=== PATIENT | female | born 1955 | race Caucasian/White ===

== ENCOUNTER 2017-01-12 10:06 | Day surgery (SDC) | payer MEDICARE, OTHER ==
--- NOTE | ~2017-01-12 | EGD ---
EGD REPORT [facility] [address] [address] NAME: CHANCE DELEON : [birth year] STATUS : REG [facility]#: [id number] AGE: 61 ADM/REG DATE : 01/12/17 MR#: [id number] REPORT SERV DATE: 01/12/17 DICTATED BY: DATE: REPORT STATUS : Draft TRANSCRIBED BY: [employer] DATE: 01/12/17 [facility] Patient Name: Chance Deleon Date of : 1955 Attending MD: MADDY TEJADA MD Procedure Date No Time: 01/12/2017 Procedure: Colonoscopy Indications: Heme positive stool, Iron deficiency anemia secondary to chronic blood loss, history adenomatous polyps Referring MD: LEON HIGH Medicines: Monitored Anesthesia Care Complications: No immediate complications. Procedure: Pre-Anesthesia Assessment: - ASA Grade Assessment: III - A patient with severe systemic disease. After I obtained informed consent, the scope was passed under direct vision. Throughout the procedure, the patient's blood pressure, pulse, and oxygen saturations were monitored continuously. The PCF H190L [id number] was introduced through the anus and advanced to the cecum, identified by appendiceal orifice and ileocecal valve. The colonoscopy was performed without difficulty. The patient tolerated the procedure well. The quality of the bowel preparation was good. Findings: The perianal and digital rectal examinations were normal. The colon (entire examined portion) appeared normal. There is no endoscopic evidence of diverticula, erythema, inflammation, mass, polyps, ulcerations or angioectasia in the entire colon. No additional abnormalities were found on retroflexion. Impression: - The entire examined colon is normal. Recommendation: - Patient has a contact number available for emergencies. The signs and symptoms of potential delayed complications were discussed with the patient. Return to normal activities tomorrow. Written discharge instructions were provided to the patient. - Return to previous diet. - Discharge patient to home. - Continue present medications. - Repeat colonoscopy in 5 years for surveillance. Procedure Code(s): --- Professional --- EGD REPORT [facility] [address] [place] [address] [place]. [address] NAME: CHANCE DELEON : [birth year] STATUS : REG [facility]#: [id number] AGE: 61 ADM/REG DATE : 01/12/17 MR#: [id number] REPORT SERV DATE: 01/12/17 DICTATED BY: DATE: REPORT STATUS : Draft TRANSCRIBED BY: [email or web address] DATE: 01/12/17 70440, Colonoscopy, flexible, proximal to splenic flexure; diagnostic, with or without collection of specimen(s) by brushing or washing, with or without colon decompression (separate procedure) Diagnosis Code(s): --- Professional --- R19.5, Other fecal abnormalities D50.0, Iron deficiency anemia secondary to blood loss (chronic) CPT copyright 2013 [employer]. All rights reserved. The codes documented in this report are preliminary and upon seed specialist review may be revised to meet current compliance requirements. MADDY TEJADA MD 01/12/2017 1:03 PM This report has been signed electronically. Number of Addenda: 0 Note Initiated On: 01/12/2017 11:45 AM Scope Withdrawal Time 0 hours 13 minutes 0 seconds [id number] [address] [place] [id number]
--- NOTE | ~2017-01-12 | EGD ---
EGD REPORT [facility] [address] [place] [address] NAME: CHANCE DELEON : 51 STATUS : REG [facility]#: [id number] AGE: 61 ADM/REG DATE : 01/12/17 MR#: [id number] REPORT SERV DATE: 01/12/17 DICTATED BY: DATE: REPORT STATUS : Draft TRANSCRIBED BY: [employer] DATE: 01/12/17 [facility] Patient Name: Chance Deleon Date of : 1955 Attending MD: MADDY TEJADA MD Procedure Date No Time: 01/12/2017 Procedure: Upper GI endoscopy Indications: Iron deficiency anemia secondary to chronic blood loss, Iron deficiency anemia, Heme positive stool, Weight loss Referring MD: LEON HIGH Medicines: Monitored Anesthesia Care Complications: No immediate complications. Procedure: Pre-Anesthesia Assessment: - ASA Grade Assessment: III - A patient with severe systemic disease. After obtaining informed consent, the endoscope was passed under direct vision. Throughout the procedure, the patient's blood pressure, pulse, and oxygen saturations were monitored continuously. The GIF H190 [id number] was introduced through the mouth, and advanced to the jejunum. The upper GI endoscopy was accomplished without difficulty. The patient tolerated the procedure well. Findings: The Z-line was irregular and was found 41 cm from the incisors. Biopsies were taken with a cold forceps for histology. No other significant abnormalities were identified in a careful examination of the esophagus. There is no endoscopic evidence of hiatus hernia, ulcerations or varices in the entire esophagus. One non-bleeding cratered gastric ulcer was found at the gastric aspect of the anastomosis for a Bilroth I. The lesion was >20 mm in largest dimension. Biopsies were taken with a cold forceps for histology. Diffuse moderate inflammation characterized by erosions was found in the gastric antrum. Biopsies were taken with a cold forceps for histology. The examined jejunum was normal. There is no endoscopic evidence of ulceration or angioectasia in the jejunum. The cardia and gastric fundus were normal on retroflexion. Impression: - Z-line irregular, 41 cm from the incisors. Biopsied. - Gastric ulcer with clean base. Biopsied. - Acute gastritis. Biopsied. - Normal examined jejunum. EGD REPORT [address] [address] NAME: CHANCE DELEON : [birth year] STATUS : REG [facility] PAT#: [id number] AGE: 61 ADM/REG DATE : 01/12/17 MR#: [id number] REPORT SERV DATE: 01/12/17 DICTATED BY: DATE: REPORT STATUS : Draft TRANSCRIBED BY: [employer] DATE: 01/12/17 Recommendation: - Patient has a contact number available for emergencies. The signs and symptoms of potential delayed complications were discussed with the patient. Return to normal activities tomorrow. Written discharge instructions were provided to the patient. - Regular diet. - Use Protonix (pantoprazole) 40 mg PO BID. - Await pathology results. - Continue present medications. - Repeat the upper endoscopy in 3 months for surveillance. Procedure Code(s): --- Professional --- 05012, Esophagogastroduodenoscopy, flexible, transoral; with biopsy, single or multiple Diagnosis Code(s): --- Professional --- K22.8, Other specified diseases of esophagus K25.9, Gastric ulcer, unspecified as acute or chronic, without hemorrhage or perforation K29.00, Acute gastritis without bleeding D50.0, Iron deficiency anemia secondary to blood loss (chronic) D50.9, Iron deficiency anemia, unspecified R19.5, Other fecal abnormalities R63.4, Abnormal weight loss CPT copyright 2013 [employer]. All rights reserved. The codes documented in this report are preliminary and upon personal lines underwriter review may be revised to meet current compliance requirements. MADDY TEJADA MD 01/12/2017 1:01 PM This report has been signed electronically. Number of Addenda: 0 Note Initiated On: 01/12/2017 11:46 AM Scope Withdrawal Time 0 hours 0 minutes 0 seconds
[~2017-01-12 10:06] MED LIST: AMB10 PO; ASAB PO; B121000P IM; CAP50 PO; CAPOTEN100 MG PO; CAT1 PO; CYMBALTA60 PO; DEMA20 PO; HALF81 PO; I10 PO; IBU800 PO; IODOSORB TOP; LANTUS SC; LEVOTHYROXIN137 MCG PO; LIPITOR10 PO; LORCET PO; NEUR300 PO; NEUR600 PO; NORV10 PO; NORV5 PO; OXYCONTIN15 MG PO; P5 PO; PLAVIX PO; PREDISONE PO/LIQ; REM15 PO; REQUIP1 PO; RESTASIS OP; ROXICODONE15 MG PO; SYN125 PO; SYNTHROID137 MCG PO; TRAMADOL HCL50 MG OR; ULTRAM50 PO; X5 PO; XIFAXAN550 MG PO; ZYVOXPO PO
[2017-04-08] MEDS ORDERED: ROXICODONE15 MG PO (21:01)
[2017-04-08] MEDS ORDERED: ASAB PO (21:02)
[2017-04-08] MEDS ORDERED: LIPITOR10 PO (21:02)
[2017-04-08] MEDS ORDERED: PR25 PO (21:02)
[2017-04-08] MEDS ORDERED: CO Q-10200 MG PO (21:03)
[2017-04-08] MEDS ORDERED: CAPOTEN100 MG PO (21:03)
[2017-04-08] MEDS ORDERED: CREON 24,000 UNIT PO (21:03)
[2017-04-08] MEDS ORDERED: REG PO (21:04)
[2017-04-08] MEDS ORDERED: LANTUSCART SC (21:04)
[2017-04-08] MEDS ORDERED: NEUR600 PO (21:04)
[2017-04-08] MEDS ORDERED: SYNTHROID137 MCG PO (21:04)
[2017-04-08] MEDS ORDERED: CYMBALTA60 PO (21:04)
[2017-04-08] MEDS ORDERED: NOVOLOG SC (21:05)
[2017-04-08] MEDS ORDERED: P5 PO (21:07)
[2017-04-08] MEDS ORDERED: VITE PO (21:07)
[2017-04-08] MEDS ORDERED: OXYCON20 PO (21:07)
[2017-04-08] MEDS ORDERED: PROTONIX PO (21:07)
[2017-04-08] MEDS ORDERED: BISR PR (21:08)
[2017-04-08] MEDS ORDERED: CREON 12000 UNIT PO (21:10)
[2017-04-08] MEDS ORDERED: FLEETS ENEMA PR (21:11)
[2017-04-08] MEDS ORDERED: MOMUD PEG (21:12)
[2017-04-08] MEDS ORDERED: ZOFRAN4 PO (21:12)
[2017-04-21] MEDS ORDERED: ASAB PO (19:23)
[2017-04-21] MEDS ORDERED: LIPITOR10 PO (19:24)
[2017-04-21] MEDS ORDERED: CO Q-10200 MG PO (19:24)
[2017-04-21] MEDS ORDERED: CAP50 PO (19:24)
[2017-04-21] MEDS ORDERED: CYMBALTA60 PO (19:25)
[2017-04-21] MEDS ORDERED: CREON 24000 UNIT PO (19:25)
[2017-04-21] MEDS ORDERED: NEUR600 PO (19:25)
[2017-04-21] MEDS ORDERED: SYNTHROID137 MCG PO (19:26)
[2017-04-21] MEDS ORDERED: LEVEMFLXPN SC (19:26)
[2017-04-21] MEDS ORDERED: LOP25 PO (19:27)
[2017-04-21] MEDS ORDERED: REG PO (19:27)
[2017-04-21] MEDS ORDERED: LIDODERM TOP (19:27)
[2017-04-21] MEDS ORDERED: FLAG500TAB PO (19:28)
[2017-04-21] MEDS ORDERED: NOVOPEN SC (19:29)
[2017-04-21] MEDS ORDERED: P5 PO (19:30)
[2017-04-21] MEDS ORDERED: VITE PO (19:30)
[2017-04-21] MEDS ORDERED: PRILOSEC40 MG PO (19:30)
[2017-04-21] MEDS ORDERED: OXYCON20 PO (19:30)
[2017-04-21] MEDS ORDERED: SPIRO25 PO (19:30)
[2017-04-21] MEDS ORDERED: BISR PR (19:31)
[2017-04-21] MEDS ORDERED: CREON 12000 UNIT PO (19:31)
[2017-04-21] MEDS ORDERED: NORCO1 TA2 PO (19:31)
[2017-04-21] MEDS ORDERED: ZOFRAN4 PO (19:32)
[2017-04-21] MEDS ORDERED: MOMUD PO (19:32)
[2017-04-21] MEDS ORDERED: PR12.5 PO (19:33)
[2017-05-17] MEDS ORDERED: CALTRA600D PO (19:21)
[2017-05-17] MEDS ORDERED: CAP50 PO (19:21)
[2017-05-17] MEDS ORDERED: LIPITOR10 PO (19:21)
[2017-05-17] MEDS ORDERED: CO Q-10200 MG PO (19:21)
[2017-05-17] MEDS ORDERED: ASAB PO (19:21)
[2017-05-17] MEDS ORDERED: CREON DR 3,0001 EACH PO ×2 (19:22→19:26)
[2017-05-17] MEDS ORDERED: CYMBALTA60 PO (19:22)
[2017-05-17] MEDS ORDERED: NEUR600 PO (19:22)
[2017-05-17] MEDS ORDERED: LOP25 PO (19:23)
[2017-05-17] MEDS ORDERED: LEVOTHYROXIN137 MCG PO (19:23)
[2017-05-17] MEDS ORDERED: LIDODERM TOP (19:23)
[2017-05-17] MEDS ORDERED: LEVEMIR SC (19:23)
[2017-05-17] MEDS ORDERED: PRILOSEC40 MG PO (19:24)
[2017-05-17] MEDS ORDERED: MYCOSCROI TOP (19:24)
[2017-05-17] MEDS ORDERED: NOVOLOG SC (19:24)
[2017-05-17] MEDS ORDERED: REM15 PO (19:24)
[2017-05-17] MEDS ORDERED: P5 PO (19:25)
[2017-05-17] MEDS ORDERED: SPIRO25 PO (19:25)
[2017-05-17] MEDS ORDERED: OXYCON20 PO (19:25)
[2017-05-17] MEDS ORDERED: NORCO1 TA2 PO (19:26)
[2017-05-17] MEDS ORDERED: VITE PO (19:26)
[2017-05-17] MEDS ORDERED: REG PO (19:26)
[2017-05-17] MEDS ORDERED: ZOFRAN4 PO (19:27)
[2017-05-17] MEDS ORDERED: PR12.5 PO (19:27)
[2017-05-17] MEDS ORDERED: TRAZ50 PO (19:27)
[2017-05-26] MEDS ORDERED: REM15 PO (16:35)
[2017-05-26] MEDS ORDERED: LEVOTHYROXIN137 MCG PO (16:35)
[2017-05-26] MEDS ORDERED: P5 PO (16:36)
[2017-05-26] MEDS ORDERED: CAPOTEN100 MG PO (16:36)
[2017-05-26] MEDS ORDERED: LIPITOR10 PO (16:36)
[2017-05-26] MEDS ORDERED: CYMBALTA60 PO (16:36)
[2017-05-26] MEDS ORDERED: ROXICODONE15 MG PO (16:37)
[2017-05-26] MEDS ORDERED: VITE PO (16:37)
[2017-05-26] MEDS ORDERED: CO Q-10200 MG PO (16:37)
[2017-05-26] MEDS ORDERED: OXYCONTIN15 MG PO (16:38)
[2017-05-26] MEDS ORDERED: PROTONIX PO (16:39)
[2017-05-26] MEDS ORDERED: I10 PO (16:39)
[2017-05-26] MEDS ORDERED: NEUR300 PO (16:39)
[2017-05-26] MEDS ORDERED: CREON PO (16:40)
[2017-05-26] MEDS ORDERED: NORV5 PO (16:40)
[2017-05-26] MEDS ORDERED: LANTUS SC (16:41)
[2017-05-26] MEDS ORDERED: DEMA20 PO (16:42)
[2017-05-28] MEDS ORDERED: LIPITOR10 PO (19:23)
[2017-05-28] MEDS ORDERED: CAP25 PO (19:23)
[2017-05-28] MEDS ORDERED: CO Q-10200 MG PO (19:24)
[2017-05-28] MEDS ORDERED: CYMBALTA60 PO (19:24)
[2017-05-28] MEDS ORDERED: CREON DR 3,0001 EACH PO (19:24)
[2017-05-28] MEDS ORDERED: LOP25 PO (19:25)
[2017-05-28] MEDS ORDERED: NEUR300 PO (19:25)
[2017-05-28] MEDS ORDERED: LANTUSCART SC (19:25)
[2017-05-28] MEDS ORDERED: SYNTHROID137 MCG PO (19:25)
[2017-05-28] MEDS ORDERED: NOVOLOG SC (19:26)
[2017-05-28] MEDS ORDERED: NORCO1 TA2 PO (19:26)
[2017-05-28] MEDS ORDERED: MYCOSCROI TOP (19:26)
[2017-05-28] MEDS ORDERED: PROTONIX PO (19:27)
[2017-05-28] MEDS ORDERED: P5 PO (19:27)
[2017-05-28] MEDS ORDERED: PR12.5 PO (19:27)
[2017-05-28] MEDS ORDERED: VITE PO (19:28)
[2017-05-28] MEDS ORDERED: REM15 PO (19:28)
[2017-05-28] MEDS ORDERED: TRAZ50 PO (19:28)
[2017-05-28] MEDS ORDERED: ZOFRAN4 PO (19:29)
[2017-05-28] MEDS ORDERED: [UNRECOGNIZED DRUG - CODE] PO (19:29)
[2017-05-28] MEDS ORDERED: OXYCON20 PO (20:00)
[2017-06-22] MEDS ORDERED: CREON PO (09:37)
[2017-06-22] MEDS ORDERED: OXYCODONE PO (09:41)
[2017-07-21] MEDS ORDERED: OXYCOD PO (09:54)
== END 2017-01-12 23:59 | disposition home or self-care (01) ==
LOC: DMU 10:06
PROVIDERS: Internal Medicine Gastroenterology
PROC: 0DJD8ZZ Inspection of Lower Intestinal Tract, Via Natural or Artificial Opening Endoscopic (ICD-10-PCS; 2017-01-12)
PROC: 0DB68ZX Excision of Stomach, Via Natural or Artificial Opening Endoscopic, Diagnostic (ICD-10-PCS; principal; 2017-01-12 13:00)
PROC: 0DB58ZX Excision of Esophagus, Via Natural or Artificial Opening Endoscopic, Diagnostic (ICD-10-PCS; 2017-01-12 13:00)
DX: D50.0 Iron deficiency anemia secondary to blood loss (chronic) (principal); K29.50 Unspecified chronic gastritis without bleeding; K25.9 Gastric ulcer, unspecified as acute or chronic, without hemorrhage or perforation; K20.9 Esophagitis, unspecified; I10 Essential (primary) hypertension; I25.10 Atherosclerotic heart disease of native coronary artery without angina pectoris; E11.40 Type 2 diabetes mellitus with diabetic neuropathy, unspecified; E78.00 Pure hypercholesterolemia, unspecified; M79.7 Fibromyalgia; E03.9 Hypothyroidism, unspecified; F32.9 Major depressive disorder, single episode, unspecified; Z88.8 Allergy status to other drugs, medicaments and biological substances; Z79.82 Long term (current) use of aspirin; Z79.891 Long term (current) use of opiate analgesic; Z79.4 Long term (current) use of insulin; Z79.899 Other long term (current) drug therapy; Z98.51 Tubal ligation status; Z96.642 Presence of left artificial hip joint; Z98.890 Other specified postprocedural states; Z98.41 Cataract extraction status, right eye; Z98.42 Cataract extraction status, left eye
CPT/HCPCS: 82962; 88305; 88342

== ENCOUNTER 2017-03-18 08:35 | Day surgery (SDC) | payer MEDICARE, OTHER ==
--- NOTE | ~2017-03-18 | OP ---
Record Of Operation [facility] [address] [place]. 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 PROCEDURE: Right infraclavicular SMART Port Port-A-Cath placed with C-arm guidance and confirmation. ANESTHESIA: 0.5% Marcaine with epinephrine 20 mL locally infiltrated supplemented by monitored analgesia control per the anesthesia group CONTRACT ADMINISTRATION SPECIALIST. CREW LEADER/CONTROL ROOM OPERATOR: Ray Molina RN SKILLED LABORER SPECIMENS: There were no specimens removed. ESTIMATED BLOOD LOSS: 5 mL. COMPLICATIONS: No complications. POSTOPERATIVE FINDINGS: The Port-A-Cath was in good position and no obvious pneumothorax. Good flow, irrigation, and aspiration were obtained. PERTINENT PREOPERATIVE INFORMATION: The patient is status post diagnosis of scleroderma as well as status post a Whipple done at [facility] in 1997 for chronic pancreatitis. The patient has continued to lose weight and developed multiple wounds in lower extremities. Her pre-albumin was quite low and her level was measured at 7.8, which is in the severe malnourished category. The patient's SMART Port is catalog number [id number], lot #[id number], label pin #[id number], revision A. DESCRIPTION OF PROCEDURE: The patient was brought to the operating room. Time-out called and full agreement with personnel about the procedure, allergies, and antibiotics. The patient was prepped and draped in the operative field. Prepping out the upper chest and neck. Marking pen was used to delineate a marking position at the level of the internal and jugular vein as well as the infraclavicular and subclavian vein sites. The patient was placed in Trendelenburg position and 18-gauge needle used to approach the subclavian vein infraclavicularly. The guidewire was then placed after good flow, irrigation, and aspiration had been achieved. The guidewire was advanced and C-arm confirmation of location was achieved. After this was done, a dilator with a strip away sheath was introduced over the guidewire and the Port-A-Cath tubing was placed in through the strip away sheath and positioned with C-arm guidance. Good position in the superior vena cava was achieved and Record Of Operation [facility] [address] [place]. [address] NAME: CHANCE FIELDS : 51 STATUS : REG [facility] PAT#: [id number] AGE: 61 ADM/REG DATE : 03/18/17 MR#: [id number] REPORT SERV DATE: 03/18/17 DICTATED BY: NILDA MOLINA III DATE: 03/18/17 REPORT STATUS : Draft TRANSCRIBED BY: [employer] DATE: 03/18/17 the port catheter used to aspirate and irrigate with good flow and irrigation noted. A tunneling device was then used to tunnel between the small infraclavicular incision, which was about 3-4 mm and a pocket that was created about 6 cm inferior on the right side. The pocket was developed and the tunneling device used to pull the catheter between the two incisions. The Port-A-Cath itself was then secured to the chest wall fascia with two sutures of 2-0 silk and the catheter secured to the Port-A-Cath with the provided securing device and 2-0 silk placed around the hub to further secure it. The port was then irrigated and aspirated with good flow and irrigation and the port itself was then irrigated with 4 mL of 10/999 strength straight heparin. After this was done, the port was secured to the underlying fascia with the two silk sutures and the subcutaneous tissue closed over the port with interrupted 3-0 Vicryl sutures. The skin was then closed with Dermabond. The small infraclavicular incision at the entry site was closed with two layers of 4-0 Vicryl and Dermabond to the skin. Wound was then dressed with Telfa and Tegaderm and the procedure concluded with C-arm confirmation of the location. A portable chest x-ray, upright position has been ordered to rule out a pneumothorax. The patient tolerated the procedure well with good control of her discomfort during the operation with a steady vital signs. RB/MODL Nilda Molina III, M.D. / [id number] CC: Davonte Katz III, LISA [facility] Nichol Roberts M.D.
[2017-03-18 09:50] LABS: INTERNATIONAL NORMAL RATI 1.3 UNITS (-); PROTIME (NOT ORD) 15.9 SEC (12.0-14.5)
[2017-04-08] MEDS ORDERED: ROXICODONE15 MG PO (21:01)
[2017-04-08] MEDS ORDERED: ASAB PO (21:02)
[2017-04-08] MEDS ORDERED: PR25 PO (21:02)
[2017-04-08] MEDS ORDERED: LIPITOR10 PO (21:02)
[2017-04-08] MEDS ORDERED: CREON 24,000 UNIT PO (21:03)
[2017-04-08] MEDS ORDERED: CAPOTEN100 MG PO (21:03)
[2017-04-08] MEDS ORDERED: CO Q-10200 MG PO (21:03)
[2017-04-08] MEDS ORDERED: NEUR600 PO (21:04)
[2017-04-08] MEDS ORDERED: REG PO (21:04)
[2017-04-08] MEDS ORDERED: SYNTHROID137 MCG PO (21:04)
[2017-04-08] MEDS ORDERED: LANTUSCART SC (21:04)
[2017-04-08] MEDS ORDERED: CYMBALTA60 PO (21:04)
[2017-04-08] MEDS ORDERED: NOVOLOG SC (21:05)
[2017-04-08] MEDS ORDERED: P5 PO (21:07)
[2017-04-08] MEDS ORDERED: OXYCON20 PO (21:07)
[2017-04-08] MEDS ORDERED: VITE PO (21:07)
[2017-04-08] MEDS ORDERED: PROTONIX PO (21:07)
[2017-04-08] MEDS ORDERED: BISR PR (21:08)
[2017-04-08] MEDS ORDERED: CREON 12000 UNIT PO (21:10)
[2017-04-08] MEDS ORDERED: FLEETS ENEMA PR (21:11)
[2017-04-08] MEDS ORDERED: MOMUD PEG (21:12)
[2017-04-08] MEDS ORDERED: ZOFRAN4 PO (21:12)
[2017-04-21] MEDS ORDERED: ASAB PO (19:23)
[2017-04-21] MEDS ORDERED: CO Q-10200 MG PO (19:24)
[2017-04-21] MEDS ORDERED: CAP50 PO (19:24)
[2017-04-21] MEDS ORDERED: LIPITOR10 PO (19:24)
[2017-04-21] MEDS ORDERED: NEUR600 PO (19:25)
[2017-04-21] MEDS ORDERED: CREON 24000 UNIT PO (19:25)
[2017-04-21] MEDS ORDERED: CYMBALTA60 PO (19:25)
[2017-04-21] MEDS ORDERED: LEVEMFLXPN SC (19:26)
[2017-04-21] MEDS ORDERED: SYNTHROID137 MCG PO (19:26)
[2017-04-21] MEDS ORDERED: REG PO (19:27)
[2017-04-21] MEDS ORDERED: LOP25 PO (19:27)
[2017-04-21] MEDS ORDERED: LIDODERM TOP (19:27)
[2017-04-21] MEDS ORDERED: FLAG500TAB PO (19:28)
[2017-04-21] MEDS ORDERED: NOVOPEN SC (19:29)
[2017-04-21] MEDS ORDERED: OXYCON20 PO (19:30)
[2017-04-21] MEDS ORDERED: PRILOSEC40 MG PO (19:30)
[2017-04-21] MEDS ORDERED: SPIRO25 PO (19:30)
[2017-04-21] MEDS ORDERED: VITE PO (19:30)
[2017-04-21] MEDS ORDERED: P5 PO (19:30)
[2017-04-21] MEDS ORDERED: CREON 12000 UNIT PO (19:31)
[2017-04-21] MEDS ORDERED: BISR PR (19:31)
[2017-04-21] MEDS ORDERED: NORCO1 TA2 PO (19:31)
[2017-04-21] MEDS ORDERED: ZOFRAN4 PO (19:32)
[2017-04-21] MEDS ORDERED: MOMUD PO (19:32)
[2017-04-21] MEDS ORDERED: PR12.5 PO (19:33)
[2017-05-17] MEDS ORDERED: CALTRA600D PO (19:21)
[2017-05-17] MEDS ORDERED: CAP50 PO (19:21)
[2017-05-17] MEDS ORDERED: ASAB PO (19:21)
[2017-05-17] MEDS ORDERED: LIPITOR10 PO (19:21)
[2017-05-17] MEDS ORDERED: CO Q-10200 MG PO (19:21)
[2017-05-17] MEDS ORDERED: CREON DR 3,0001 EACH PO ×2 (19:22→19:26)
[2017-05-17] MEDS ORDERED: CYMBALTA60 PO (19:22)
[2017-05-17] MEDS ORDERED: NEUR600 PO (19:22)
[2017-05-17] MEDS ORDERED: LEVEMIR SC (19:23)
[2017-05-17] MEDS ORDERED: LIDODERM TOP (19:23)
[2017-05-17] MEDS ORDERED: LEVOTHYROXIN137 MCG PO (19:23)
[2017-05-17] MEDS ORDERED: LOP25 PO (19:23)
[2017-05-17] MEDS ORDERED: MYCOSCROI TOP (19:24)
[2017-05-17] MEDS ORDERED: PRILOSEC40 MG PO (19:24)
[2017-05-17] MEDS ORDERED: REM15 PO (19:24)
[2017-05-17] MEDS ORDERED: NOVOLOG SC (19:24)
[2017-05-17] MEDS ORDERED: OXYCON20 PO (19:25)
[2017-05-17] MEDS ORDERED: P5 PO (19:25)
[2017-05-17] MEDS ORDERED: SPIRO25 PO (19:25)
[2017-05-17] MEDS ORDERED: VITE PO (19:26)
[2017-05-17] MEDS ORDERED: REG PO (19:26)
[2017-05-17] MEDS ORDERED: NORCO1 TA2 PO (19:26)
[2017-05-17] MEDS ORDERED: PR12.5 PO (19:27)
[2017-05-17] MEDS ORDERED: ZOFRAN4 PO (19:27)
[2017-05-17] MEDS ORDERED: TRAZ50 PO (19:27)
[2017-05-26] MEDS ORDERED: REM15 PO (16:35)
[2017-05-26] MEDS ORDERED: LEVOTHYROXIN137 MCG PO (16:35)
[2017-05-26] MEDS ORDERED: CYMBALTA60 PO (16:36)
[2017-05-26] MEDS ORDERED: CAPOTEN100 MG PO (16:36)
[2017-05-26] MEDS ORDERED: LIPITOR10 PO (16:36)
[2017-05-26] MEDS ORDERED: P5 PO (16:36)
[2017-05-26] MEDS ORDERED: CO Q-10200 MG PO (16:37)
[2017-05-26] MEDS ORDERED: VITE PO (16:37)
[2017-05-26] MEDS ORDERED: ROXICODONE15 MG PO (16:37)
[2017-05-26] MEDS ORDERED: OXYCONTIN15 MG PO (16:38)
[2017-05-26] MEDS ORDERED: PROTONIX PO (16:39)
[2017-05-26] MEDS ORDERED: NEUR300 PO (16:39)
[2017-05-26] MEDS ORDERED: I10 PO (16:39)
[2017-05-26] MEDS ORDERED: CREON PO (16:40)
[2017-05-26] MEDS ORDERED: NORV5 PO (16:40)
[2017-05-26] MEDS ORDERED: LANTUS SC (16:41)
[2017-05-26] MEDS ORDERED: DEMA20 PO (16:42)
[2017-05-28] MEDS ORDERED: CAP25 PO (19:23)
[2017-05-28] MEDS ORDERED: LIPITOR10 PO (19:23)
[2017-05-28] MEDS ORDERED: CREON DR 3,0001 EACH PO (19:24)
[2017-05-28] MEDS ORDERED: CO Q-10200 MG PO (19:24)
[2017-05-28] MEDS ORDERED: CYMBALTA60 PO (19:24)
[2017-05-28] MEDS ORDERED: LANTUSCART SC (19:25)
[2017-05-28] MEDS ORDERED: LOP25 PO (19:25)
[2017-05-28] MEDS ORDERED: NEUR300 PO (19:25)
[2017-05-28] MEDS ORDERED: SYNTHROID137 MCG PO (19:25)
[2017-05-28] MEDS ORDERED: MYCOSCROI TOP (19:26)
[2017-05-28] MEDS ORDERED: NOVOLOG SC (19:26)
[2017-05-28] MEDS ORDERED: NORCO1 TA2 PO (19:26)
[2017-05-28] MEDS ORDERED: PR12.5 PO (19:27)
[2017-05-28] MEDS ORDERED: P5 PO (19:27)
[2017-05-28] MEDS ORDERED: PROTONIX PO (19:27)
[2017-05-28] MEDS ORDERED: VITE PO (19:28)
[2017-05-28] MEDS ORDERED: REM15 PO (19:28)
[2017-05-28] MEDS ORDERED: TRAZ50 PO (19:28)
[2017-05-28] MEDS ORDERED: ZOFRAN4 PO (19:29)
[2017-05-28] MEDS ORDERED: [UNRECOGNIZED DRUG - CODE] PO (19:29)
[2017-05-28] MEDS ORDERED: OXYCON20 PO (20:00)
[2017-06-22] MEDS ORDERED: CREON PO (09:37)
[2017-06-22] MEDS ORDERED: OXYCODONE PO (09:41)
[2017-07-21] MEDS ORDERED: OXYCOD PO (09:54)
== END 2017-03-18 15:21 | disposition home or self-care (01) ==
LOC: SDC 08:35
PROVIDERS: Surgery
PROC: 05HM33Z Insertion of Infusion Device into Right Internal Jugular Vein, Percutaneous Approach (ICD-10-PCS; 2017-03-18)
PROC: B513ZZA Fluoroscopy of Right Jugular Veins, Guidance (ICD-10-PCS; 2017-03-18)
PROC: 0JH60XZ Insertion of Tunneled Vascular Access Device into Chest Subcutaneous Tissue and Fascia, Open Approach (ICD-10-PCS; principal; 2017-03-18 09:45)
DX: M34.9 Systemic sclerosis, unspecified (principal); E43 Unspecified severe protein-calorie malnutrition; E78.5 Hyperlipidemia, unspecified; E11.51 Type 2 diabetes mellitus with diabetic peripheral angiopathy without gangrene; I10 Essential (primary) hypertension; I25.2 Old myocardial infarction; F32.9 Major depressive disorder, single episode, unspecified; Z90.49 Acquired absence of other specified parts of digestive tract; Z90.411 Acquired partial absence of pancreas; Z87.891 Personal history of nicotine dependence; Z88.5 Allergy status to narcotic agent; Z79.82 Long term (current) use of aspirin; Z79.4 Long term (current) use of insulin; Z79.891 Long term (current) use of opiate analgesic; Z79.52 Long term (current) use of systemic steroids; Z79.899 Other long term (current) drug therapy
CPT/HCPCS: 71010; 76000; 77001; 82962; 85610; 85730; 93005; C1788; J0690; J2250; J2370; J2405; J3010

== ENCOUNTER 2017-03-25 12:52 | Inpatient (IN) | payer MEDICARE, OTHER ==
--- NOTE | ~2017-03-25 | HP ---
History And Physical [place] [address] [facility] [place]. [address] NAME: CHANCE FIELDS : [birth year] STATUS : ADM IN [facility]#: [id number] AGE: 61 ADM/REG DATE : 03/25/17 MR#: [id number] REPORT SERV DATE: 03/25/17 DICTATED BY: SLOAN BURNETT DATE: 03/25/17 REPORT STATUS : Draft TRANSCRIBED BY: [employer] DATE: 03/25/17 DATE OF ADMISSION: 03/25/2017 CHIEF COMPLAINT: Increased shortness of breath and lethargy. 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 Came in because she had become more and more lethargic. She had become more and more shortness of breath. She says both her arms were weeping, and they did put a tourniquet on her left arm for checking her blood pressure that made her left arm swell even worse. She has a chest pain that she says felt somewhat heavier and tighter than usual. She denies any nausea, vomiting, diaphoresis. She has not had any fever or chills. She denies any cough. She says her appetite has been poor, but because she was not able to move she activated EMS and was brought to the hospital. In the emergency room, she was noted to have anasarca including some swelling in her abdomen as well as both upper extremities. She was also noted to be very weak and fatigue, so she had been referred to the Hospitalist Service for further treatment and evaluation. HOME MEDICATIONS: Aspirin 81 mg once daily; Lipitor 10 mg once at bedtime; captopril 10 mg twice daily; coenzyme Q10 200 mg once at bedtime; doxycycline 100 mg every 12 hours for seven days, therapy has been completed; Cymbalta 60 mg once daily; gabapentin 600 mg three times daily; insulin Lantus 8 units subcu at bedtime; levothyroxine 137 mcg once daily; Creon 24,000 units with meals and 12,000 units with snacks; Roxicodone 15 mg three times daily p.r.n.; OxyContin 15 mg every 12 hours; Protonix 40 mg p.o. twice daily; prednisone 5 mg once daily; vitamin E 400 mg once daily. REVIEW OF SYSTEMS: Rest of the 12-point review of systems were negative except she did mention a very low-grade fever. PAST MEDICAL HISTORY: Scleroderma, gastroesophageal reflux, hypertension, she has heart disease, CREST syndrome, chronic steroid use, chronic pancreatitis, chronic kidney disease followed by Dr. Cotto, and chronic bacterial overgrowth in the intestine followed by Dr. Nichol Roberts. PAST SURGICAL HISTORY: Significant for 2nd, 3rd, and 4th digits repaired by Dr. Wakefield and Whipple surgery. FAMILY HISTORY: Daughter noted to have Wang disease and grandmother with cancer. SOCIAL HISTORY: She has a history of smoking, quit about eight years ago, was smoking one pack per day for 15 years prior to that. No use of alcohol or illicit substances. Lives at home with the . Fully functional in all ADLs. PHYSICAL EXAMINATION: GENERAL: White female, lying on a gurney, appears to be chronically ill. History And Physical [address] [address] NAME: CHANCE FIELDS : [birth year] STATUS : ADM IN [facility]#: [id number] AGE: 61 ADM/REG DATE : 03/25/17 MR#: [id number] REPORT SERV DATE: 03/25/17 DICTATED BY: SLOAN BURNETT DATE: 03/25/17 REPORT STATUS : Draft TRANSCRIBED BY: CONCHITA DATE: 03/25/17 VITAL SIGNS: Blood pressure 148/85, pulse is 83, temp is 98.6, saturation of 93% on 2 L of nasal cannula. HEENT: Head is normocephalic and atraumatic. Pupils are equal, round, and reactive to light. Extraocular muscles are intact. Sclerae are anicteric. Conjunctivae are normal. Oropharynx without lesions. Multiple telangiectasias on the face. There is a bruise on the left amish area where she reported that she had fallen and she bruises easily. Her tongue protrusion is midline. Uvula is midline. NECK: Supple. There is no evidence of any jugular venous distention. No carotid bruits or thyromegaly is appreciated. Significant muscle wasting of the face both temples and of the neck area is also noted. HEART: Regular rate and rhythm. There is no murmurs, rubs, or gallops. PMI is nondisplaced. LUNGS: Dry. Velcro type rales are noted. There is no evidence of any focal consolidation. No rhonchi or wheezing is noted. ABDOMEN: Slightly obese, soft, nontender. Good bowel sounds. No rebound or guarding. No organomegaly. EXTREMITIES: Without cyanosis, clubbing. There is no evidence of edema in the lower extremities. There is 2+ pitting edema in bilateral upper extremities. Weeping left upper extremity is also noted. NEUROLOGICAL: Seems to be grossly intact. LABORATORY DATA: Sodium of 140, potassium of 4.4, chloride is 108, bicarb is 28, BUN is 25, creatinine is 0.64, glucose of 120. Calcium is 7.4, total protein is 4.8, albumin is 1.4. Total bilirubin is 0.9, alkaline phosphatase is 222, ALT is 25, AST is 63. Ammonia level is 12. BNP is 156. White count is 10.8, hemoglobin of 11.4, hematocrit of 33.7, platelet count is 233,000. No left shift. PT is 15, INR of 1.3, PTT is 34. An i-STAT ABG shows a pH of 7.4, pCO2 of 34, and a PO2 of less than 60, O2 saturation was 81%. Ionized calcium was 4.4. Lactate was 1.2. Glucose was 116. Blood cultures have been drawn and sent to the lab. Sputum culture has not been obtained yet. Chest x-ray portable, official radiology reading bilateral, asymmetric infiltrates are mildly worse compared to prior study of 03/18/2017. EKG sinus rhythm with occasional PACs, low voltage, but no acute ST-T wave changes. IMPRESSION: 1. Anasarca, most likely due to protein-calorie malnutrition and cirrhosis of the liver. 2. Cirrhosis of the liver. 3. Severe protein-calorie malnutrition with an albumin of 1.4. 4. Possibility of upper extremity deep venous thrombosis. 5. Scleroderma with CREST syndrome. 6. Hypertension. 7. Gastroesophageal reflux. PLAN: The patient will be admitted. IV albumin will be given. IV Bumex will be given. We will limit her salt intake. We will wean her O2, use of bronchodilator protocol. We will obtain a CT of the chest with contrast to further assess if there are any upper extremity vascular structures impingement. We will obtain bilateral upper extremity ultrasound to rule out DVT. We will check routine labs again in the morning. Check a pre-albumin. We History And Physical [address] [place]. [address] NAME: CHANCE FIELDS : 51 STATUS : ADM IN PAT#: [id number] AGE: 61 ADM/REG DATE : 03/25/17 MR#: [id number] REPORT SERV DATE: 03/25/17 DICTATED BY: SLOAN BURNETT DATE: 03/25/17 REPORT STATUS : Draft TRANSCRIBED BY: MODL DATE: 03/25/17 will ask physical therapy to evaluate and treat. The patient remains a full code. I have personally addressed her home medications as noted on her chart. ZULEYKA/CONCHITA Sloan Burnett M.D. / [id number] CC: Davonte Tolliver Lisa M
--- NOTE | ~2017-03-25 | CN ---
Consultation Report [facility] [address] [place]. [address] NAME: CHANCE DELEON : 51 STATUS : ADM IN [facility]#: [id number] AGE: 61 ADM/REG DATE : 03/25/17 MR#: [id number] REPORT SERV DATE: 03/29/17 DICTATED BY: DOMO OJEDA DATE: 03/29/17 REPORT STATUS : Draft TRANSCRIBED BY: MODL DATE: 03/29/17 INPATIENT CONSULTATION DATE OF CONSULTATION: 03/29/2017 REASON FOR CONSULTATION: Malnutrition and request for PEG tube placement. HISTORY OF PRESENT ILLNESS: Mrs. Deleon is a very pleasant 61-year-old female with past medical history most significant for systemic scleroderma with involvement of the liver with cirrhosis and lung disease, who presented to the emergency department due to increasing lethargy and shortness of breath. The patient has been having ongoing problems as well at home over the last several months with decreased nutrition, has been receiving TPN through a port. Plans have been made previously for consideration of possible PEG tube placement. The patient states that she has not been eating because she often gets full very quickly and will also have accompanying episodes of nauseousness. No vomiting on a regular basis. No change in her bowel habits. No abdominal pain. The patient denies any fevers or chills. Upon presentation, the patient was found to have signs of malnutrition with a low albumin of 1.4. Electrolytes were otherwise relatively unremarkable. BUN was 25, creatinine of 0.64, glucose of 120. LFTs were normal aside from an elevated alkaline phosphatase of 222. CBC was unremarkable. INR was 1.3. GI was consulted for consideration of PEG tube placement. REVIEW OF SYSTEMS: All systems reviewed and were negative aside from what was mentioned in history of present illness. PAST MEDICAL HISTORY: Includes, 1. Scleroderma. 2. GERD. 3. Hypertension. 4. Cirrhosis. 5. CREST syndrome. 6. Chronic pancreatitis, status post Whipple in 1997. 7. Chronic kidney disease. 8. Chronic bacterial overgrowth. FAMILY HISTORY: The patient has no family history of GI related malignancies that she is aware of. SOCIAL HISTORY: The patient denies alcohol, tobacco, and illicit substances. ALLERGIES: THIS PATIENT HAS ALLERGIES TO MEPERIDINE. OUTPATIENT MEDICATIONS: Include, 1. Coenzyme Q10. Consultation Report [place] [id number] [facility] [place]. [address] NAME: CHANCE DELEON : 51 STATUS : ADM IN PAT#: [id number] AGE: 61 ADM/REG DATE : 03/25/17 MR#: [id number] REPORT SERV DATE: 03/29/17 DICTATED BY: DOMO OJEDA DATE: 03/29/17 REPORT STATUS : Draft TRANSCRIBED BY: CONCHITA DATE: 03/29/17 2. Aspirin 81 mg p.o. daily. 3. Creon capsules. 4. Protonix 40 mg p.o. twice a day. 5. Lipitor. 6. Captopril. 7. Cymbalta. 8. Neurontin. 9. Levothyroxine. 10.Oxycodone. 11.Prednisone. 12.Vitamin E. 13.Lantus insulin. 14.Doxycycline. PHYSICAL EXAMINATION: VITAL SIGNS: Most recent vital signs include a temperature of 98.8, pulse of 80, blood pressure is 148/80, saturating 100% on 2 L nasal cannula oxygen. GENERAL: Inspection reveals an elderly female, lying in bed, in no apparent distress. HEENT: Head is normocephalic, atraumatic. Normal inspection of the oral mucosa, which is moist. Sclerae nonicteric. Pupils are equal and round. NECK: Supple without lymphadenopathy. HEART: Rate is regular with normal S1, S2. LUNGS: Lung sounds are clear to auscultation bilaterally. ABDOMEN: Soft, nontender, nondistended with normoactive bowel sounds. EXTREMITIES: The patient has no cyanosis, clubbing, or edema. SKIN: No jaundice or rash. NEURO: No gross motor deficits. She is alert and oriented. Mood and affect are appropriate. Judgment appears to be intact. LABORATORY DATA: Most recent laboratory results include CBC, it shows a white count of 5.6, hemoglobin of 8.5, and a platelet count of a 149,000. Renal function panel was entirely unremarkable aside from an albumin of 1.9. No pertinent imaging to review. ASSESSMENT AND PLAN: Mrs. Deleon is a pleasant 61-year-old female with past medical history most significant for scleroderma; gastroesophageal reflux disease; chronic pancreatitis, status post Whipple procedure in 1997; as well as chronic bacterial overgrowth, who presents with weakness and malnutrition. The patient has been receiving TPN per report. The patient's symptoms are primarily postprandial that have been preventing her from eating. Question if there is degree of gastroparesis underlying. We will send the patient for a gastric emptying study. If positive a trial of Reglan may be appropriate prior to proceeding with placement of a semi-permanent PEG tube/feeding tube. If no evidence of gastroparesis, would consider placement of a PEG, however, would have a low threshold for Consultation Report [place] [id number] [place]. [address] NAME: CHANCE DELEON : 51 STATUS : ADM IN [facility]#: [id number] AGE: 61 ADM/REG DATE : 03/25/17 MR#: [id number] REPORT SERV DATE: 03/29/17 DICTATED BY: DOMO OJEDA DATE: 03/29/17 REPORT STATUS : Draft TRANSCRIBED BY: CONCHITA DATE: 03/29/17 asking for Interventional Radiology assistance with placement given her altered anatomy and previous gastric surgery. Thank you very much for this interesting consult. Please call with any questions or concerns you may have. [facility]/CONCHITA Domo Ojeda MD / [id number] CC: MD LENNOX Cervantes II, LISA M *
--- NOTE | ~2017-03-25 | DS ---
Discharge Summary [facility] [address] [place]. [address] NAME: CHANCE FIELDS : 51 STATUS : DIS IN PAT#: [id number] AGE: 61 ADM/REG DATE : 03/25/17 MR#: [id number] REPORT SERV DATE: 06/28/17 DICTATED BY: SHIRLEY ESCALANTE II DATE: 06/27/17 REPORT STATUS : Draft TRANSCRIBED BY: MODL DATE: 06/27/17 ADMISSION DATE: 03/25/2017 DISCHARGE DATE: 04/01/2017 DISCHARGE DIAGNOSES: 1. Anasarca, resolved. 2. Severe protein-calorie malnutrition, status post PEG tube. 3. History of scleroderma and CREST. 4. Cirrhosis. 5. Gastroparesis. CONSULTS: Dr. Araujo with GI and Interventional Radiology. PROCEDURES: PEG tube placement by Dr. Delgado. BRIEF HISTORY OF PRESENT ILLNESS: The patient is a 61-year-old female with the above history, who presented to [facility] due to increasing shortness of breath and lethargy. For detailed history and physical examination, please see Dr. Burnett's note from 03/25/2017. HOSPITAL COURSE: On admission, the patient was found to be diffusely edematous with anasarca likely due to protein-calorie malnutrition, cirrhosis, hypoalbuminemia with an albumin of 1.4. She was given a brief course of IV Bumex with resolution of her edema. Dr. Araujo advised gastric emptying study, which showed a gastric EF of 12%. Dr. Delgado was subsequently consulted for placement of feeding tube with recommendation of Dr. Araujo. Dr. Delgado subsequently placed a PEG tube and the patient started on tube feedings and Reglan, which she seemed to tolerate with no residual. Otherwise, she was subsequently discharged in stable condition with tube feedings. DISCHARGE MEDICATIONS: 1. Aspirin 81 mg p.o. at bedtime. 2. Atorvastatin 10 mg p.o. at bedtime. 3. Captopril 100 mg p.o. b.i.d. 4. Coenzyme Q10 200 mg p.o. at bedtime. 5. Cymbalta 60 mg p.o. daily. 6. Neurontin 600 mg p.o. t.i.d. 7. Lantus 8 units subcu at bedtime. 8. Synthroid 137 mcg p.o. daily. 9. Creon 33709 units p.o. meals. 10.Creon 00652 units p.o. with snacks. 11.Protonix 40 mg p.o. b.i.d. 12.Vitamin E 400 units p.o. b.i.d. 13.Roxicodone 15 mg p.o. 3 times a day p.r.n. 14.Roxicodone 15 mg p.o. q.12 hours. 15.Prednisone 5 mg p.o. daily. 16.Reglan 10 mg p.o. a.c. and at bedtime. Discharge Summary [address] [address] NAME: CHANCE FIELDS : 51 STATUS : DIS IN PAT#: [id number] AGE: 61 ADM/REG DATE : 03/25/17 MR#: [id number] REPORT SERV DATE: 06/28/17 DICTATED BY: SHIRLEY ESCALANTE II DATE: 06/27/17 REPORT STATUS : Draft TRANSCRIBED BY: CONCHITA DATE: 06/27/17 DISCHARGE INSTRUCTIONS: The patient was discharged to assisted for further rehabilitation. [facility]/CONCHITA Shirley Escalante II, MD / [id number] CC: MD Abraham Cervantes II, Lisa M
[2017-03-25 13:55] LABS: BASOPHILS 0.1 %; BASOPHILS ABSOLUTE 0.01 10/3/uL (0.0-0.16); EOSINOPHILS 0.2 %; EOSINOPHILS ABSOLUTE 0.02 10/3/uL (0.0-0.53); HEMATOCRIT 33.7 % (36.0-48.0); HEMOGLOBIN 11.4 g/dL (12.0-16.0); IMMATURE GRANULOCYTES 0.5 %; IMMATURE GRANULOCYTES ABSOLUTE 0.05 10/3/uL (0.0-0.11); LYMPHOCYTES 6.5 %; MEAN CORPUS HGB CONC 33.8 g/dL (32.0-36.0); MEAN CORPUSCULAR HEMOGLOB 31.8 pg (26.0-34.0); MEAN CORPUSCULAR VOLUME 93.9 fL (80-100); MEAN PLATELET VOLUME 11.9 fL (9.2-13.0); MONOCYTES 2.6 %; MONOCYTES ABSOLUTE 0.28 10/3/uL (0.21-1.20); NEUTROPHILS 90.1 %; RBC DISTRIBUTION WIDTH 19.4 % (12.0-16.0); RED CELL COUNT 3.59 10/6/uL (4.0-5.6)
[2017-03-25 13:59] LABS: ER CBC TAT 0 Hrs 11 Mins; MANUAL DIFF NO %; PLATELET COUNT 233 10/3/uL (150-400); WHITE BLOOD CELLS 10.8 10/3/uL (4.5-10.5)
[2017-03-25 14:12] LABS: CALCIUM, SERUM 7.4 MG/DL (8.5-10.4); CHLORIDE, SERUM 108 MMOL/L (96-112); GLUCOSE, SERUM 120 MG/DL (60-99); POTASSIUM, SERUM 4.4 MMOL/L (3.5-5.3); SGOT(AST) 63 U/L (5-40); SGPT(ALT) 25 U/L (5-65); TOTAL BILIRUBIN 0.9 MG/DL (0-1.2); TOTAL PROTEIN 4.8 G/DL (6.0-8.5)
[2017-03-25 14:14] LABS: A/G RATIO 0.4 (0.7-1.9); ALBUMIN 1.4 G/DL (3.5-5.0); ALKALINE PHOSPHATASE 222 U/L (45-117); BUN (BLOOD UREA NITROGEN) 25 MG/DL (6-23); CO2 (CARBON DIOXIDE) 28 MMOL/L (24-34); CREATININE 0.64 MG/DL (0.55-1.02); GFR AFRICAN AMERICAN 110 ML/MIN (>=60); GFR NON AFRICAN AMERICAN 95 ML/MIN (>=60); GLOBULIN 3.4 G/DL (2.5-4.1); SODIUM, SERUM 140 MMOL/L (135-148)
[2017-03-25] MEDS ORDERED: COQ-10200 MG PO (14:59)
[2017-03-25] MEDS ORDERED: ASAB PO (15:00)
[2017-03-25] MEDS ORDERED: CREON DR 3,0001 EACH PO ×2 (15:02→15:03)
[2017-03-25] MEDS ORDERED: PROTONIX PO (15:04)
[2017-03-25] MEDS ORDERED: LIPITOR10 PO (15:05)
[2017-03-25] MEDS ORDERED: CAPOTEN100 MG PO (15:06)
[2017-03-25] MEDS ORDERED: CYMBALTA60 PO (15:07)
[2017-03-25] MEDS ORDERED: NEUR600 PO (15:09)
[2017-03-25] MEDS ORDERED: LEVOTHYROXIN137 MCG PO (15:10)
[2017-03-25] MEDS ORDERED: ROXICODONE15 MG PO (15:12)
[2017-03-25] MEDS ORDERED: OXYCONTIN15 MG PO (15:14)
[2017-03-25] MEDS ORDERED: P5 PO (15:17)
[2017-03-25] MEDS ORDERED: VITE PO (15:18)
[2017-03-25] MEDS ORDERED: LANTUS SC (15:20)
[2017-03-25] MEDS ORDERED: DORYX100 MG PO (15:27)
[2017-03-26 08:04] LABS: ALBUMIN 3.1 G/DL (3.5-5.0); BUN (BLOOD UREA NITROGEN) 21 MG/DL (6-23); CALCIUM, SERUM 7.8 MG/DL (8.5-10.4); CHLORIDE, SERUM 104 MMOL/L (96-112); CO2 (CARBON DIOXIDE) 29 MMOL/L (24-34); CREATININE 0.68 MG/DL (0.55-1.02); GFR AFRICAN AMERICAN 108 ML/MIN (>=60); GFR NON AFRICAN AMERICAN 93 ML/MIN (>=60); GLUCOSE, SERUM 97 MG/DL (60-99); PHOSPHORUS, SERUM 2.7 MG/DL (2.5-4.5); POTASSIUM, SERUM 3.9 MMOL/L (3.5-5.3); SODIUM, SERUM 138 MMOL/L (135-148)
[2017-03-26 08:57] LABS: BASOPHILS 0.1 %; BASOPHILS ABSOLUTE 0.01 10/3/uL (0.0-0.16); EOSINOPHILS 1.3 %; EOSINOPHILS ABSOLUTE 0.09 10/3/uL (0.0-0.53); HEMOGLOBIN 10.2 g/dL (12.0-16.0); IMMATURE GRANULOCYTES 0.4 %; IMMATURE GRANULOCYTES ABSOLUTE 0.03 10/3/uL (0.0-0.11); LYMPHOCYTES 14.5 %; LYMPHOCYTES ABSOLUTE 1.01 10/3/uL (0.67-4.30); MEAN CORPUS HGB CONC 33.7 g/dL (32.0-36.0); MEAN CORPUSCULAR HEMOGLOB 32.4 pg (26.0-34.0); MEAN CORPUSCULAR VOLUME 96.2 fL (80-100); MEAN PLATELET VOLUME 11.2 fL (9.2-13.0); MONOCYTES 3.4 %; MONOCYTES ABSOLUTE 0.24 10/3/uL (0.21-1.20); NEUTROPHILS 80.3 %; RBC DISTRIBUTION WIDTH 19.4 % (12.0-16.0); RED CELL COUNT 3.15 10/6/uL (4.0-5.6)
[2017-03-26 09:01] LABS: HEMATOCRIT 30.3 % (36.0-48.0)
[2017-03-26 09:02] LABS: MANUAL DIFF NO %; PLATELET COUNT 162 10/3/uL (150-400)
[2017-03-27 04:45] LABS: BASOPHILS 0.1 %; BASOPHILS ABSOLUTE 0.01 10/3/uL (0.0-0.16); EOSINOPHILS 0.7 %; EOSINOPHILS ABSOLUTE 0.08 10/3/uL (0.0-0.53); HEMATOCRIT 28.7 % (36.0-48.0); HEMOGLOBIN 9.7 g/dL (12.0-16.0); IMMATURE GRANULOCYTES 0.4 %; IMMATURE GRANULOCYTES ABSOLUTE 0.05 10/3/uL (0.0-0.11); LYMPHOCYTES ABSOLUTE 2.67 10/3/uL (0.67-4.30); MEAN CORPUS HGB CONC 33.8 g/dL (32.0-36.0); MEAN CORPUSCULAR HEMOGLOB 31.9 pg (26.0-34.0); MEAN CORPUSCULAR VOLUME 94.4 fL (80-100); MEAN PLATELET VOLUME 11.7 fL (9.2-13.0); MONOCYTES 3.5 %; MONOCYTES ABSOLUTE 0.41 10/3/uL (0.21-1.20); NEUTROPHILS 72.3 %; NEUTROPHILS ABSOLUTE 8.38 10/3/uL (2.02-8.40); PLATELET COUNT 204 10/3/uL (150-400); RBC DISTRIBUTION WIDTH 19.2 % (12.0-16.0); RED CELL COUNT 3.04 10/6/uL (4.0-5.6)
[2017-03-27 04:51] LABS: ALBUMIN 2.6 G/DL (3.5-5.0); BUN (BLOOD UREA NITROGEN) 16 MG/DL (6-23); CALCIUM, SERUM 7.7 MG/DL (8.5-10.4); CHLORIDE, SERUM 100 MMOL/L (96-112); CO2 (CARBON DIOXIDE) 38 MMOL/L (24-34); CREATININE 0.67 MG/DL (0.55-1.02); GFR AFRICAN AMERICAN 108 ML/MIN (>=60); GFR NON AFRICAN AMERICAN 94 ML/MIN (>=60); GLUCOSE, SERUM 42 MG/DL (60-99); MANUAL DIFF NO %; PHOSPHORUS, SERUM 2.1 MG/DL (2.5-4.5); POTASSIUM, SERUM 3.2 MMOL/L (3.5-5.3); SODIUM, SERUM 140 MMOL/L (135-148); WHITE BLOOD CELLS 11.6 10/3/uL (4.5-10.5)
[2017-03-28 04:06] LABS: ALBUMIN 2.1 G/DL (3.5-5.0); BUN (BLOOD UREA NITROGEN) 16 MG/DL (6-23); CALCIUM, SERUM 7.5 MG/DL (8.5-10.4); CHLORIDE, SERUM 101 MMOL/L (96-112); CO2 (CARBON DIOXIDE) 34 MMOL/L (24-34); CREATININE 0.57 MG/DL (0.55-1.02); GFR AFRICAN AMERICAN 114 ML/MIN (>=60); GFR NON AFRICAN AMERICAN 99 ML/MIN (>=60); PHOSPHORUS, SERUM 2.7 MG/DL (2.5-4.5); SODIUM, SERUM 142 MMOL/L (135-148)
[2017-03-28 04:07] LABS: GLUCOSE, SERUM 104 MG/DL (60-99)
[2017-03-29 05:39] LABS: BASOPHILS 0.2 %; BASOPHILS ABSOLUTE 0.01 10/3/uL (0.0-0.16); EOSINOPHILS 1.6 %; EOSINOPHILS ABSOLUTE 0.09 10/3/uL (0.0-0.53); HEMOGLOBIN 8.5 g/dL (12.0-16.0); IMMATURE GRANULOCYTES 0.2 %; IMMATURE GRANULOCYTES ABSOLUTE 0.01 10/3/uL (0.0-0.11); LYMPHOCYTES 18.3 %; LYMPHOCYTES ABSOLUTE 1.03 10/3/uL (0.67-4.30); MEAN CORPUS HGB CONC 32.7 g/dL (32.0-36.0); MEAN CORPUSCULAR HEMOGLOB 31.5 pg (26.0-34.0); MEAN CORPUSCULAR VOLUME 96.3 fL (80-100); MEAN PLATELET VOLUME 11.5 fL (9.2-13.0); MONOCYTES 3.9 %; MONOCYTES ABSOLUTE 0.22 10/3/uL (0.21-1.20); NEUTROPHILS 75.8 %; NEUTROPHILS ABSOLUTE 4.28 10/3/uL (2.02-8.40); PLATELET COUNT 149 10/3/uL (150-400); RBC DISTRIBUTION WIDTH 20.4 % (12.0-16.0)
[2017-03-29 05:40] LABS: MANUAL DIFF NO %; WHITE BLOOD CELLS 5.6 10/3/uL (4.5-10.5)
[2017-03-29 05:55] LABS: ALBUMIN 1.9 G/DL (3.5-5.0); CALCIUM, SERUM 7.8 MG/DL (8.5-10.4); CHLORIDE, SERUM 103 MMOL/L (96-112); CO2 (CARBON DIOXIDE) 33 MMOL/L (24-34); CREATININE 0.56 MG/DL (0.55-1.02); GFR AFRICAN AMERICAN 115 ML/MIN (>=60); GFR NON AFRICAN AMERICAN 99 ML/MIN (>=60); GLUCOSE, SERUM 104 MG/DL (60-99); PHOSPHORUS, SERUM 2.8 MG/DL (2.5-4.5); POTASSIUM, SERUM 3.8 MMOL/L (3.5-5.3); SODIUM, SERUM 141 MMOL/L (135-148)
[2017-03-29 05:56] LABS: BUN (BLOOD UREA NITROGEN) 12 MG/DL (6-23)
[2017-03-30 04:34] LABS: BASOPHILS 0.2 %; BASOPHILS ABSOLUTE 0.01 10/3/uL (0.0-0.16); EOSINOPHILS 1.8 %; HEMATOCRIT 25.4 % (36.0-48.0); HEMOGLOBIN 8.4 g/dL (12.0-16.0); IMMATURE GRANULOCYTES 0.4 %; IMMATURE GRANULOCYTES ABSOLUTE 0.02 10/3/uL (0.0-0.11); LYMPHOCYTES ABSOLUTE 1.13 10/3/uL (0.67-4.30); MEAN CORPUS HGB CONC 33.1 g/dL (32.0-36.0); MEAN CORPUSCULAR HEMOGLOB 32.3 pg (26.0-34.0); MEAN CORPUSCULAR VOLUME 97.7 fL (80-100); MEAN PLATELET VOLUME 11.7 fL (9.2-13.0); MONOCYTES 5.1 %; MONOCYTES ABSOLUTE 0.29 10/3/uL (0.21-1.20); NEUTROPHILS 72.5 %; NEUTROPHILS ABSOLUTE 4.09 10/3/uL (2.02-8.40); PLATELET COUNT 155 10/3/uL (150-400); RBC DISTRIBUTION WIDTH 20.3 % (12.0-16.0); WHITE BLOOD CELLS 5.6 10/3/uL (4.5-10.5)
[2017-03-30 04:35] LABS: MANUAL DIFF NO %
[2017-03-30 04:49] LABS: BUN (BLOOD UREA NITROGEN) 11 MG/DL (6-23); CHLORIDE, SERUM 106 MMOL/L (96-112); CO2 (CARBON DIOXIDE) 31 MMOL/L (24-34); CREATININE 0.56 MG/DL (0.55-1.02); GFR AFRICAN AMERICAN 115 ML/MIN (>=60); GFR NON AFRICAN AMERICAN 99 ML/MIN (>=60); GLUCOSE, SERUM 94 MG/DL (60-99); POTASSIUM, SERUM 4.3 MMOL/L (3.5-5.3); SODIUM, SERUM 142 MMOL/L (135-148)
[2017-03-30 06:05] LABS: INTERNATIONAL NORMAL RATI 1.1 UNITS (-); PARTIAL THROMBO TIME 38.2 SEC (22.5-37.2)
[2017-04-01 09:12] LABS: ALBUMIN 1.8 G/DL (3.5-5.0); BUN (BLOOD UREA NITROGEN) 13 MG/DL (6-23); CALCIUM, SERUM 7.6 MG/DL (8.5-10.4); CHLORIDE, SERUM 107 MMOL/L (96-112); CO2 (CARBON DIOXIDE) 30 MMOL/L (24-34); CREATININE 0.55 MG/DL (0.55-1.02); GFR AFRICAN AMERICAN 116 ML/MIN (>=60); GFR NON AFRICAN AMERICAN 100 ML/MIN (>=60); PHOSPHORUS, SERUM 2.5 MG/DL (2.5-4.5); POTASSIUM, SERUM 3.9 MMOL/L (3.5-5.3); PREALBUMIN 5.6 MG/DL (17.0-43.0); SGOT(AST) 29 U/L (5-40); SGPT(ALT) 19 U/L (5-65); SODIUM, SERUM 142 MMOL/L (135-148); TOTAL BILIRUBIN 0.5 MG/DL (0-1.2); TOTAL PROTEIN 4.5 G/DL (6.0-8.5)
[2017-04-01 09:13] LABS: A/G RATIO 0.7 (0.7-1.9); ALKALINE PHOSPHATASE 111 U/L (45-117); GLOBULIN 2.7 G/DL (2.5-4.1); GLUCOSE, SERUM 136 MG/DL (60-99)
[2017-04-08] MEDS ORDERED: ROXICODONE15 MG PO (21:01)
[2017-04-08] MEDS ORDERED: LIPITOR10 PO (21:02)
[2017-04-08] MEDS ORDERED: PR25 PO (21:02)
[2017-04-08] MEDS ORDERED: ASAB PO (21:02)
[2017-04-08] MEDS ORDERED: CAPOTEN100 MG PO (21:03)
[2017-04-08] MEDS ORDERED: CO Q-10200 MG PO (21:03)
[2017-04-08] MEDS ORDERED: CREON 24,000 UNIT PO (21:03)
[2017-04-08] MEDS ORDERED: LANTUSCART SC (21:04)
[2017-04-08] MEDS ORDERED: CYMBALTA60 PO (21:04)
[2017-04-08] MEDS ORDERED: REG PO (21:04)
[2017-04-08] MEDS ORDERED: NEUR600 PO (21:04)
[2017-04-08] MEDS ORDERED: SYNTHROID137 MCG PO (21:04)
[2017-04-08] MEDS ORDERED: NOVOLOG SC (21:05)
[2017-04-08] MEDS ORDERED: PROTONIX PO (21:07)
[2017-04-08] MEDS ORDERED: VITE PO (21:07)
[2017-04-08] MEDS ORDERED: OXYCON20 PO (21:07)
[2017-04-08] MEDS ORDERED: P5 PO (21:07)
[2017-04-08] MEDS ORDERED: BISR PR (21:08)
[2017-04-08] MEDS ORDERED: CREON 12000 UNIT PO (21:10)
[2017-04-08] MEDS ORDERED: FLEETS ENEMA PR (21:11)
[2017-04-08] MEDS ORDERED: ZOFRAN4 PO (21:12)
[2017-04-08] MEDS ORDERED: MOMUD PEG (21:12)
[2017-04-21] MEDS ORDERED: ASAB PO (19:23)
[2017-04-21] MEDS ORDERED: LIPITOR10 PO (19:24)
[2017-04-21] MEDS ORDERED: CAP50 PO (19:24)
[2017-04-21] MEDS ORDERED: CO Q-10200 MG PO (19:24)
[2017-04-21] MEDS ORDERED: NEUR600 PO (19:25)
[2017-04-21] MEDS ORDERED: CREON 24000 UNIT PO (19:25)
[2017-04-21] MEDS ORDERED: CYMBALTA60 PO (19:25)
[2017-04-21] MEDS ORDERED: LEVEMFLXPN SC (19:26)
[2017-04-21] MEDS ORDERED: SYNTHROID137 MCG PO (19:26)
[2017-04-21] MEDS ORDERED: REG PO (19:27)
[2017-04-21] MEDS ORDERED: LIDODERM TOP (19:27)
[2017-04-21] MEDS ORDERED: LOP25 PO (19:27)
[2017-04-21] MEDS ORDERED: FLAG500TAB PO (19:28)
[2017-04-21] MEDS ORDERED: NOVOPEN SC (19:29)
[2017-04-21] MEDS ORDERED: P5 PO (19:30)
[2017-04-21] MEDS ORDERED: VITE PO (19:30)
[2017-04-21] MEDS ORDERED: PRILOSEC40 MG PO (19:30)
[2017-04-21] MEDS ORDERED: SPIRO25 PO (19:30)
[2017-04-21] MEDS ORDERED: OXYCON20 PO (19:30)
[2017-04-21] MEDS ORDERED: CREON 12000 UNIT PO (19:31)
[2017-04-21] MEDS ORDERED: BISR PR (19:31)
[2017-04-21] MEDS ORDERED: NORCO1 TA2 PO (19:31)
[2017-04-21] MEDS ORDERED: MOMUD PO (19:32)
[2017-04-21] MEDS ORDERED: ZOFRAN4 PO (19:32)
[2017-04-21] MEDS ORDERED: PR12.5 PO (19:33)
[2017-05-17] MEDS ORDERED: CALTRA600D PO (19:21)
[2017-05-17] MEDS ORDERED: CAP50 PO (19:21)
[2017-05-17] MEDS ORDERED: CO Q-10200 MG PO (19:21)
[2017-05-17] MEDS ORDERED: ASAB PO (19:21)
[2017-05-17] MEDS ORDERED: LIPITOR10 PO (19:21)
[2017-05-17] MEDS ORDERED: CREON DR 3,0001 EACH PO ×2 (19:22→19:26)
[2017-05-17] MEDS ORDERED: NEUR600 PO (19:22)
[2017-05-17] MEDS ORDERED: CYMBALTA60 PO (19:22)
[2017-05-17] MEDS ORDERED: LEVEMIR SC (19:23)
[2017-05-17] MEDS ORDERED: LOP25 PO (19:23)
[2017-05-17] MEDS ORDERED: LIDODERM TOP (19:23)
[2017-05-17] MEDS ORDERED: LEVOTHYROXIN137 MCG PO (19:23)
[2017-05-17] MEDS ORDERED: NOVOLOG SC (19:24)
[2017-05-17] MEDS ORDERED: MYCOSCROI TOP (19:24)
[2017-05-17] MEDS ORDERED: PRILOSEC40 MG PO (19:24)
[2017-05-17] MEDS ORDERED: REM15 PO (19:24)
[2017-05-17] MEDS ORDERED: OXYCON20 PO (19:25)
[2017-05-17] MEDS ORDERED: P5 PO (19:25)
[2017-05-17] MEDS ORDERED: SPIRO25 PO (19:25)
[2017-05-17] MEDS ORDERED: NORCO1 TA2 PO (19:26)
[2017-05-17] MEDS ORDERED: REG PO (19:26)
[2017-05-17] MEDS ORDERED: VITE PO (19:26)
[2017-05-17] MEDS ORDERED: TRAZ50 PO (19:27)
[2017-05-17] MEDS ORDERED: ZOFRAN4 PO (19:27)
[2017-05-17] MEDS ORDERED: PR12.5 PO (19:27)
[2017-05-26] MEDS ORDERED: REM15 PO (16:35)
[2017-05-26] MEDS ORDERED: LEVOTHYROXIN137 MCG PO (16:35)
[2017-05-26] MEDS ORDERED: CAPOTEN100 MG PO (16:36)
[2017-05-26] MEDS ORDERED: CYMBALTA60 PO (16:36)
[2017-05-26] MEDS ORDERED: LIPITOR10 PO (16:36)
[2017-05-26] MEDS ORDERED: P5 PO (16:36)
[2017-05-26] MEDS ORDERED: ROXICODONE15 MG PO (16:37)
[2017-05-26] MEDS ORDERED: VITE PO (16:37)
[2017-05-26] MEDS ORDERED: CO Q-10200 MG PO (16:37)
[2017-05-26] MEDS ORDERED: OXYCONTIN15 MG PO (16:38)
[2017-05-26] MEDS ORDERED: NEUR300 PO (16:39)
[2017-05-26] MEDS ORDERED: I10 PO (16:39)
[2017-05-26] MEDS ORDERED: PROTONIX PO (16:39)
[2017-05-26] MEDS ORDERED: NORV5 PO (16:40)
[2017-05-26] MEDS ORDERED: CREON PO (16:40)
[2017-05-26] MEDS ORDERED: LANTUS SC (16:41)
[2017-05-26] MEDS ORDERED: DEMA20 PO (16:42)
[2017-05-28] MEDS ORDERED: LIPITOR10 PO (19:23)
[2017-05-28] MEDS ORDERED: CAP25 PO (19:23)
[2017-05-28] MEDS ORDERED: CREON DR 3,0001 EACH PO (19:24)
[2017-05-28] MEDS ORDERED: CYMBALTA60 PO (19:24)
[2017-05-28] MEDS ORDERED: CO Q-10200 MG PO (19:24)
[2017-05-28] MEDS ORDERED: LANTUSCART SC (19:25)
[2017-05-28] MEDS ORDERED: NEUR300 PO (19:25)
[2017-05-28] MEDS ORDERED: SYNTHROID137 MCG PO (19:25)
[2017-05-28] MEDS ORDERED: LOP25 PO (19:25)
[2017-05-28] MEDS ORDERED: MYCOSCROI TOP (19:26)
[2017-05-28] MEDS ORDERED: NOVOLOG SC (19:26)
[2017-05-28] MEDS ORDERED: NORCO1 TA2 PO (19:26)
[2017-05-28] MEDS ORDERED: PROTONIX PO (19:27)
[2017-05-28] MEDS ORDERED: P5 PO (19:27)
[2017-05-28] MEDS ORDERED: PR12.5 PO (19:27)
[2017-05-28] MEDS ORDERED: REM15 PO (19:28)
[2017-05-28] MEDS ORDERED: TRAZ50 PO (19:28)
[2017-05-28] MEDS ORDERED: VITE PO (19:28)
[2017-05-28] MEDS ORDERED: ZOFRAN4 PO (19:29)
[2017-05-28] MEDS ORDERED: [UNRECOGNIZED DRUG - CODE] PO (19:29)
[2017-05-28] MEDS ORDERED: OXYCON20 PO (20:00)
[2017-06-22] MEDS ORDERED: CREON PO (09:37)
[2017-06-22] MEDS ORDERED: OXYCODONE PO (09:41)
[2017-07-21] MEDS ORDERED: OXYCOD PO (09:54)
== END 2017-04-01 17:23 | DRG 391 ==
LOC: ER 12:52 → 4EA 15:22
PROVIDERS: Hospitalist; Internal Medicine; Nurse Practitioner Adult Health
PROC: 0DH63UZ Insertion of Feeding Device into Stomach, Percutaneous Approach (ICD-10-PCS; principal; 2017-03-30)
DX: K31.84 Gastroparesis (principal); E43 Unspecified severe protein-calorie malnutrition; K74.60 Unspecified cirrhosis of liver; Z68.1 Body mass index [BMI] 19.9 or less, adult; M34.1 CR(E)ST syndrome; I10 Essential (primary) hypertension; K21.9 Gastro-esophageal reflux disease without esophagitis; E11.9 Type 2 diabetes mellitus without complications; E03.9 Hypothyroidism, unspecified
CPT/HCPCS: 36600; 49440; 71010; 71020; 71275; 78264; 80048; 80053; 80069; 82140; 82330; 82803; 82947; 82962; 83605; 83735; 83880; 84100; 84132; 84134; 84295; 85014; 85025; 85379; 85610; 85730; 87040; 87070; 87205; 93005; 93306; 93970; 94640; 97110-GP; 97116-GP; 97161-GP; 97530-GP; 99285; A9270-GY; A9541; C1769; G8978-CK-GP; G8979-CJ-GP; J0330; J1170; J2250; J2270; J2405; J2765; J3010; P9047; Q9967

== ENCOUNTER 2017-04-08 23:37 | Inpatient (IN) | payer MEDICARE, OTHER ==
--- NOTE | ~2017-04-08 | HP ---
History And Physical [address] [address] NAME: CHANCE FIELDS : 51 STATUS : ADM Agnieszka PAT#: [id number] AGE: 61 ADM/REG DATE : 04/09/17 MR#: [id number] REPORT SERV DATE: 04/09/17 DICTATED BY: NEW BRANTLEY DATE: 04/09/17 REPORT STATUS : Draft TRANSCRIBED BY: MODL DATE: 04/09/17 DATE OF ADMISSION: 04/09/2017 CHIEF COMPLAINT: A 61-year-old female, presenting with intractable nausea and vomiting, unable to tolerate tube feedings and a PEG tube. HISTORY OF PRESENT ILLNESS: The patient's history was obtained through careful interview with the patient, coupled with review of [facility] and [facility] medical records. The patient has longstanding CREST syndrome and scleroderma because of chronic pancreatitis, had to have a Whipple in 1997. Recently, the patient has had debilitating vomiting related to gastroparesis and because of weight loss and debilitation and failure to thrive, was recommended to have a feeding tube placed. Within the last month, the patient had a PEG tube placed but unfortunately since being discharged at [facility] [place], tube feeds have been unsuccessful because the patient has significant post feeding residuals and the tube feeds are actually backing up considerably. For the last week, she has had nausea and vomiting that is uncontrolled. She describes epigastric abdominal discomfort, cramping quality, 5/10 severity that is constant. She has not had a significant bowel movement in some time. She has subjective fevers and chills, but no measured fevers. She describes urinary pressure, dysuria with a stinging sensation to her urine with urinary frequency. No shortness of breath. No chest pain. No cough. No lightheadedness. REVIEW OF SYSTEMS: Otherwise, a 14-point review of systems was obtained and was negative. PAST MEDICAL HISTORY: 1. CREST syndrome with scleroderma. 2. Diabetes. 3. Anemia. 4. GAR cirrhosis. 5. Pancreatitis chronic status post Whipple in 1997. 6. Chronic kidney disease. Followed previously by Dr. Cotto. 7. Coronary artery disease. 8. Peripheral vascular disease. 9. Hypertension. 10.Elevated cholesterol. History And Physical [address] [address] NAME: CHANCE FIELDS : 51 STATUS : ADM Agnieszka PAT#: [id number] AGE: 61 ADM/REG DATE : 04/09/17 MR#: [id number] REPORT SERV DATE: 04/09/17 DICTATED BY: NEW BRANTLEY DATE: 04/09/17 REPORT STATUS : Draft TRANSCRIBED BY: CONCHITA DATE: 04/09/17 11.Urethral stricture. Seen by Dr. Carreon. 12.Peptic ulcer disease. Seen by Dr. Nichol Roberts. 13.MRSA. 14.Nephrolithiasis. 15.Abdominal aortic aneurysm. 16.Gastroparesis. 17.Hypothyroidism. 18.Neuropathy. 19.Positive lupus anticoagulant. PAST SURGICAL HISTORY: 1. Whipple in 1997. 2. PEG tube placement. 3. Cholecystectomy. 4. Port-A-Cath placement. 5. Right foot osteomyelitis. 6. Hysterectomy. 7. Right hip surgery. 8. Incarcerated hernia repair. 9. Left wrist surgery. ALLERGIES: DEMEROL. SOCIAL HISTORY: Quit smoking about eight years ago. No alcohol abuse. She is . Lives in [place], [place], but has been rehabilitating at [facility]. She has two children. FAMILY HISTORY: Daughter with Wang's, and strong family history of cancer. CURRENT MEDICATIONS: Include aspirin 81 mg daily, Lipitor 10 mg daily, Dulcolax, captopril 100 mg p.o. b.i.d., coenzyme Q10, Cymbalta 60 mg p.o. daily, Neurontin 600 mg p.o. t.i.d., sliding scale insulin, Lantus 8 units subcutaneous at bedtime, Synthroid 137 mcg p.o. daily, Reglan 10 mg before meals and at bedtime, milk of magnesia, Zofran 4 mg p.o. q.6 hours, Roxicodone 15 mg p.o. t.i.d., OxyContin 20 mg p.o. b.i.d., Protonix 40 mg p.o. b.i.d., prednisone 5 mg p.o. daily, Phenergan p.r.n., vitamin E, Creon 99669 units with meals, Fleet Enema as needed. PHYSICAL EXAMINATION: VITAL SIGNS: Temperature 98.2, pulse 97, blood pressure 115/72, respiratory rate 20, O2 saturation 97% on room air. GENERAL: An ill-appearing female, in evidence of distress secondary to nausea and abdominal pain. HEENT: Pupils equal, round, and reactive to light. No conjunctival pallor. No scleral icterus. Nares are patent. Oropharynx is clear of obstruction. Moist mucous membranes. NECK: Trachea midline. No thyromegaly. LYMPH: No cervical lymphadenopathy. No supraclavicular lymphadenopathy. RESPIRATORY: Clear to auscultation at bases. No wheezes, rales, or rhonchi. Normal History And Physical [address] [place]. [address] NAME: CHANCE FIELDS : 51 STATUS : ADM Agnieszka PAT#: [id number] AGE: 61 ADM/REG DATE : 04/09/17 MR#: [id number] REPORT SERV DATE: 04/09/17 DICTATED BY: NEW BRANTLEY DATE: 04/09/17 REPORT STATUS : Draft TRANSCRIBED BY: CONCHITA DATE: 04/09/17 respiratory effort. CARDIOVASCULAR: Regular rate and rhythm. No murmurs, rubs, or gallops. No extremity edema is appreciated. ABDOMEN: Significant distention and tenderness over the epigastric area with diminished bowel tones. Guarding throughout. No rebound though. No hepatosplenomegaly. DERMATOLOGICAL: Warm and dry extremities. No pallor. No cyanosis. PSYCHIATRIC: Normal affect. Good mood. Alert and oriented x3. LABORATORY DATA: White blood count 6.2, hemoglobin 8.1, hematocrit 24.5 with an MCV of 101.5, platelets 282. Sodium 144, potassium 4.2, chloride 109, bicarb 30, BUN 19, creatinine 0.6, glucose 86. Urinalysis shows large leukocyte esterase with 20 white blood cells, albumin 2.2, lactic acid 0.5. INR 1.1. STUDIES: CT scan of the abdomen and pelvis shows no acute intraabdominal process. ASSESSMENT AND PLAN: 1. Gastroparesis exacerbation. Place on IV Reglan. 2. PEG tube, but the patient needs to have this changed to jejunal feeding tube, as the patient has failed tube feedings over the last week with the PEG tube, likely secondary to gastric distention and gastroparesis. We will consult Interventional Radiology. 3. Scleroderma with CREST. 4. Urinary tract infection. Check urine culture. Place on IV antibiotics. 5. Nonalcoholic steatohepatitis cirrhosis. 6. Macrocytic anemia, symptomatic. Transfuse blood. [facility]/MODL New Brantley M.D. / [id number] CC: MD Abraham Leiva Lisa M Colleen Schmitt, M.D.
--- NOTE | ~2017-04-08 | DS ---
Discharge Summary [facility] [address] [place]. [address] NAME: CHANCE FIELDS : 51 STATUS : ADM IN [facility]#: [id number] AGE: 61 ADM/REG DATE : 04/09/17 MR#: [id number] REPORT SERV DATE: 04/16/17 DICTATED BY: AURELIA ESPINOSA DATE: 04/15/17 REPORT STATUS : Draft TRANSCRIBED BY: MODL DATE: 04/15/17 ADMISSION DATE: 04/09/2017 DISCHARGE DATE: 04/15/2017 HOSPITAL COURSE: This is a pleasant 61-year-old female with known history of unfortunate scleroderma, long-standing crest syndrome, prior history of chronic pancreatitis on , even had a Whipple in 1997, the patient has known history of diabetes, anemia, GAR, cirrhosis appears well-compensated though, CKD sees Dr. Cotto, CAD, PAD, hypertension, hyperlipidemia, peptic ulcer disease, AAA, gastroparesis, decreased peristalsis due to scleroderma, narcotics, and diabetes likely, history osteomyelitis, MRSA. The patient came in with intractable nausea and vomiting, unable to tolerate tube feeds with the PEG tube. The patient recently had a debilitating episode of gastroparesis resulting in failure to thrive, debility, and weight loss. At that time recommended to have a feeding tube. The patient as a result, had a PEG tube, but the patient states would like to have had a GJ tube instead. The patient was discharged at that time to [facility]. Her tube feeds were unsuccessful there given significant post feeding residuals. The patient came in, placed on IV Reglan, and have pyuria likely UTI to treat with Ancef. As a result of improvement the patient finally got her J tube on the 04/12/2017, it was successful as a followup CT which then showed need for the PEG tube, balloon to be insufflated. The patient claimed to me that had since small bowel overgrowth in the past, as a result of being on her Ancef she was added with IV Flagyl and has improved amenable for discharge now that she has no abdominal pain, no nausea, no vomiting despite her goal tube feed of 55 mL an hour of Osmolite 1.5 via J tube. The patient should have continuous tube feeds, not just at night given the risk of increased rate resulting in worsening gastroparesis if her residuals were to ever increase she should stop her tube feeds rate until the residuals clear. Follow up GI in 4 to 6 weeks. Follow up with PCP in 2 weeks. Same tube feed rate, and H2O flushes at facility as here. Please do not exceed 55 mL an hour. Follow up Rheumatology in 4 to 6 weeks. The patient has been euglycemic regarding her contribution from diabetes for her gastroparesis. The patient also should reduce her narcotics given known reduction peristalsis result. DISCHARGE MEDICATIONS: 1. Aspirin 81 mg p.o. daily. 2. Lipitor 10 mg p.o. q.h.s. 3. Captopril 100 mg p.o. b.i.d. 4. Coenzyme Q10 200 mg p.o. q.h.s. 5. Cymbalta 60 mg p.o. daily. 6. Gabapentin 600 mg p.o. t.i.d. 7. NovoLog level 2 sliding scale. 8. Synthroid 137 mcg p.o. daily. 9. Lidoderm patch as nonnarcotic approach for pain. 10.Creon 24,000 units with meals, we should try t.i.d. then. 11.Reglan 10 mg p.o. before meals and at bedtime where she will have p.o. pleasure feeding only so as not to overload the gut with too much tube feed with oral intake. 12.Protonix 40 mg p.o. b.i.d., as her home dose of PPI could consider reducing as an outpatient. Discharge Summary [address] [address] NAME: CHANCE FIELDS : 51 STATUS : ADM IN [facility]#: [id number] AGE: 61 ADM/REG DATE : 04/09/17 MR#: [id number] REPORT SERV DATE: 04/16/17 DICTATED BY: AURELIA ESPINOSA DATE: 04/15/17 REPORT STATUS : Draft TRANSCRIBED BY: MODEverette DATE: 04/15/17 13.Aldactone 25 mg p.o. daily, cirrhosis. 14.Tocopherol 400 units p.o. b.i.d. 15.Oxycodone Sustained Release 20 mg p.o. b.i.d. home dose. 16.We would suppliant her Roxicodone 15 mg t.i.d. p.r.n. home dose with Lortab 7.5 mg. 17.The patient is beginning Dilaudid here. 18.Flagyl 500 mg p.o. t.i.d. for 4 more days. 19.Lantus or Levemir 8 units subcu q.h.s. 20.Phenergan p.r.n. 21.Dulcolax p.r.n. with Fleet enema p.r.n. CONSULTS: None. DISCHARGE DIAGNOSES: Recent history of small bowel overgrowth, urinary tract infection, anemia, non-alcoholic steatohepatitis, cirrhosis, gastroparesis as a result of scleroderma, diabetes, and heavy use of narcotics, malnutrition requiring tube feeds. All questions were answered. It took well over 30 minutes to do. DICTATED BY: Aurelia Espinosa DO [facility]ST/SOMMERL Aurelia Espinosa DO / [id number] CC: DO Sharon Forrester NP
--- NOTE | ~2017-04-08 | DS ---
Discharge Summary [place] [address] [place]. [address] NAME: CHANCE FIELDS : 51 STATUS : ADM IN [facility]#: [id number] AGE: 61 ADM/REG DATE : 04/09/17 MR#: [id number] REPORT SERV DATE: 04/16/17 DICTATED BY: AURELIA ESPINOSA DATE: 04/16/17 REPORT STATUS : Draft TRANSCRIBED BY: MODL DATE: 04/16/17 ADMISSION DATE: 04/09/2017 DISCHARGE DATE: 04/16/2017 ADDENDUM: Please see my full discharge summary done just yesterday. It is addendum. Delay in discharge. The patient had a 24-beat round of nonsustained V-tach. Was asymptomatic. Ordered an echo and referenced one from last month that was done, EF of 50% to 55%. As a result, reduce her captopril and add metoprolol. Have her follow up with Cardiology. Nonsustained V-tach history. Beta-blockade should aid with backbone therapy for systolic heart failure, which is chronic and potentially ischemic-driven nonsustained V-tach. Denies chest pain, chest pressure. All questions were answered. Took well over 30 minutes to do. DICTATED BY: DO ARIANNA Forrester/CONCHITA Aurelia Espinosa DO / [id number] CC: DO LEON Forrester
[2017-04-08 23:00] LABS: BASOPHILS 0.3 %; BASOPHILS ABSOLUTE 0.02 10/3/uL (0.0-0.16); EOSINOPHILS 1.9 %; EOSINOPHILS ABSOLUTE 0.12 10/3/uL (0.0-0.53); ER CBC TAT 0 Hrs 03 Mins; HEMATOCRIT 24.5 % (36.0-48.0); HEMOGLOBIN 8.1 g/dL (12.0-16.0); IMMATURE GRANULOCYTES 0.5 %; IMMATURE GRANULOCYTES ABSOLUTE 0.03 10/3/uL (0.0-0.11); LYMPHOCYTES ABSOLUTE 1.56 10/3/uL (0.67-4.30); MEAN CORPUS HGB CONC 33.1 g/dL (32.0-36.0); MEAN CORPUSCULAR HEMOGLOB 33.5 pg (26.0-34.0); MEAN PLATELET VOLUME 10.4 fL (9.2-13.0); MONOCYTES 6.7 %; MONOCYTES ABSOLUTE 0.42 10/3/uL (0.21-1.20); NEUTROPHILS 65.6 %; NEUTROPHILS ABSOLUTE 4.09 10/3/uL (2.02-8.40); RBC DISTRIBUTION WIDTH 19.7 % (12.0-16.0); RED CELL COUNT 2.42 10/6/uL (4.0-5.6); WHITE BLOOD CELLS 6.2 10/3/uL (4.5-10.5)
[2017-04-08 23:09] LABS: MANUAL DIFF NO %; MEAN CORPUSCULAR VOLUME 101.2 fL (80-100); PLATELET COUNT 282 10/3/uL (150-400)
[2017-04-08 23:15] LABS: A/G RATIO 0.7 (0.7-1.9); ALKALINE PHOSPHATASE 109 U/L (45-117); CALCIUM, SERUM 7.8 MG/DL (8.5-10.4); CHLORIDE, SERUM 109 MMOL/L (96-112); CO2 (CARBON DIOXIDE) 30 MMOL/L (24-34); DIRECT BILIRUBIN 0.2 MG/DL (0.0-0.4); GFR AFRICAN AMERICAN 112 ML/MIN (>=60); GFR NON AFRICAN AMERICAN 97 ML/MIN (>=60); INDIRECT BILIRUBIN(NOT ORDER) 0.1 MG/DL (0.1-0.9); INTERNATIONAL NORMAL RATI 1.1 UNITS (-); PARTIAL THROMBO TIME 35.1 SEC (22.5-37.2); POTASSIUM, SERUM 4.2 MMOL/L (3.5-5.3); PROTIME (NOT ORD) 14.3 SEC (12.0-14.5); SGOT(AST) 39 U/L (5-40); SGPT(ALT) 35 U/L (5-65); SODIUM, SERUM 144 MMOL/L (135-148); TOTAL BILIRUBIN 0.3 MG/DL (0-1.2); TOTAL PROTEIN 5.2 G/DL (6.0-8.5)
[2017-04-08 23:18] LABS: ALBUMIN 2.2 G/DL (3.5-5.0); BUN (BLOOD UREA NITROGEN) 19 MG/DL (6-23); GLUCOSE, SERUM 86 MG/DL (60-99)
[2017-04-08 23:19] LABS: LACTATE 0.5 MMOL/L (0.3-2.4)
[~2017-04-08 23:37] MED LIST changes: +BISR PR; +CO Q-10200 MG PO; +COQ-10200 MG PO; +CREON 12000 UNIT PO; +CREON 24,000 UNIT PO; +CREON DR 3,0001 EACH PO; +DORYX100 MG PO; +FLEETS ENEMA PR; +LANTUSCART SC; +MOMUD PEG; +NOVOLOG SC; +OXYCON20 PO; +PR25 PO; +PROTONIX PO; +REG PO; +VITE PO; +ZOFRAN4 PO
[2017-04-09 00:09] LABS: ASCORBIC ACID (UR NOT ORDER) NEG (NEG); BILIRUBIN, URINE NEGATIVE (NEG); ER URINALYSIS TAT 0 Hrs 00 Mins; KETONE, URINE NEGATIVE (NEG); LEUKOCYTE ESTERASE(NOT OR LARGE (NEG); NITRITE (URINE) NEG (NEG); WBC (NOT ORDERED) (RFLEX) 20 (0-5)
[2017-04-09 01:11] LABS: PROCALCITONIN 0.07 ng/mL (<0.5)
[2017-04-09 14:58] LABS: BASOPHILS 0.2 %; BASOPHILS ABSOLUTE 0.01 10/3/uL (0.0-0.16); EOSINOPHILS 0.4 %; EOSINOPHILS ABSOLUTE 0.02 10/3/uL (0.0-0.53); IMMATURE GRANULOCYTES 1.1 %; IMMATURE GRANULOCYTES ABSOLUTE 0.06 10/3/uL (0.0-0.11); LYMPHOCYTES 17.9 %; LYMPHOCYTES ABSOLUTE 0.98 10/3/uL (0.67-4.30); MEAN CORPUS HGB CONC 32.6 g/dL (32.0-36.0); MEAN CORPUSCULAR HEMOGLOB 32.1 pg (26.0-34.0); MEAN CORPUSCULAR VOLUME 98.3 fL (80-100); MEAN PLATELET VOLUME 11.2 fL (9.2-13.0); MONOCYTES 2.6 %; MONOCYTES ABSOLUTE 0.14 10/3/uL (0.21-1.20); NEUTROPHILS 77.8 %; NEUTROPHILS ABSOLUTE 4.27 10/3/uL (2.02-8.40); PLATELET COUNT 213 10/3/uL (150-400); RBC DISTRIBUTION WIDTH 20.7 % (12.0-16.0); WHITE BLOOD CELLS 5.5 10/3/uL (4.5-10.5)
[2017-04-09 15:06] LABS: INTERNATIONAL NORMAL RATI 1.1 UNITS (-); PROTIME (NOT ORD) 13.6 SEC (12.0-14.5)
[2017-04-09 15:11] LABS: HEMATOCRIT 33.7 % (36.0-48.0); RED CELL COUNT 3.43 10/6/uL (4.0-5.6)
[2017-04-09 15:12] LABS: MANUAL DIFF NO %
[2017-04-09 15:27] LABS: ELLIPTOCYTES 1+ (3-10/OIF) (0-2/OIF); PLATELET ESTIMATE ADQ (ADEQUATE)
[2017-04-09 15:28] LABS: MACROCYTES 1+ (5-10/OIF) (0-5/OIF); MICROCYTES 1+ (5-10/OIF) (0-5/OIF); TEARDROP SHAPED RBCS OCC (0-2/OIF)
[2017-04-09 15:29] LABS: POLYCHROMASIA 1+ (2-5/OIF) (0-1/OIF)
[2017-04-09 15:51] LABS: A/G RATIO 0.7 (0.7-1.9); ALBUMIN 2.4 G/DL (3.5-5.0); CALCIUM, SERUM 7.8 MG/DL (8.5-10.4); CHLORIDE, SERUM 106 MMOL/L (96-112); CREATININE 0.62 MG/DL (0.55-1.02); GFR AFRICAN AMERICAN 111 ML/MIN (>=60); GFR NON AFRICAN AMERICAN 96 ML/MIN (>=60); GLOBULIN 3.4 G/DL (2.5-4.1); POTASSIUM, SERUM 4.4 MMOL/L (3.5-5.3); PREALBUMIN 11.3 MG/DL (17.0-43.0); SGOT(AST) 81 U/L (5-40); SGPT(ALT) 50 U/L (5-65); SODIUM, SERUM 138 MMOL/L (135-148); TOTAL BILIRUBIN 0.7 MG/DL (0-1.2); TOTAL PROTEIN 5.8 G/DL (6.0-8.5)
[2017-04-09 15:52] LABS: ALKALINE PHOSPHATASE 126 U/L (45-117); BUN (BLOOD UREA NITROGEN) 15 MG/DL (6-23); CO2 (CARBON DIOXIDE) 23 MMOL/L (24-34); GLUCOSE, SERUM 176 MG/DL (60-99)
[2017-04-10 05:17] LABS: BASOPHILS 0.4 %; BASOPHILS ABSOLUTE 0.02 10/3/uL (0.0-0.16); EOSINOPHILS 2.3 %; EOSINOPHILS ABSOLUTE 0.13 10/3/uL (0.0-0.53); HEMATOCRIT 34.2 % (36.0-48.0); HEMOGLOBIN 11.1 g/dL (12.0-16.0); IMMATURE GRANULOCYTES 0.7 %; IMMATURE GRANULOCYTES ABSOLUTE 0.04 10/3/uL (0.0-0.11); LYMPHOCYTES 34.4 %; LYMPHOCYTES ABSOLUTE 1.91 10/3/uL (0.67-4.30); MEAN CORPUS HGB CONC 32.5 g/dL (32.0-36.0); MEAN CORPUSCULAR HEMOGLOB 32.1 pg (26.0-34.0); MEAN CORPUSCULAR VOLUME 98.8 fL (80-100); MEAN PLATELET VOLUME 9.9 fL (9.2-13.0); MONOCYTES 8.3 %; MONOCYTES ABSOLUTE 0.46 10/3/uL (0.21-1.20); NEUTROPHILS 53.9 %; PLATELET COUNT 265 10/3/uL (150-400); RBC DISTRIBUTION WIDTH 22.2 % (12.0-16.0); RED CELL COUNT 3.46 10/6/uL (4.0-5.6); WHITE BLOOD CELLS 5.6 10/3/uL (4.5-10.5)
[2017-04-10 05:19] LABS: MANUAL DIFF NO %
[2017-04-10 05:37] LABS: A/G RATIO 0.7 (0.7-1.9); ALBUMIN 2.2 G/DL (3.5-5.0); ALKALINE PHOSPHATASE 115 U/L (45-117); BUN (BLOOD UREA NITROGEN) 13 MG/DL (6-23); CALCIUM, SERUM 7.9 MG/DL (8.5-10.4); CHLORIDE, SERUM 111 MMOL/L (96-112); CREATININE 0.65 MG/DL (0.55-1.02); GFR AFRICAN AMERICAN 110 ML/MIN (>=60); GFR NON AFRICAN AMERICAN 94 ML/MIN (>=60); GLOBULIN 3.2 G/DL (2.5-4.1); POTASSIUM, SERUM 4.2 MMOL/L (3.5-5.3); SGOT(AST) 51 U/L (5-40); SGPT(ALT) 41 U/L (5-65); SODIUM, SERUM 143 MMOL/L (135-148); TOTAL BILIRUBIN 0.3 MG/DL (0-1.2); TOTAL PROTEIN 5.4 G/DL (6.0-8.5)
[2017-04-10 05:38] LABS: CO2 (CARBON DIOXIDE) 28 MMOL/L (24-34); GLUCOSE, SERUM 102 MG/DL (60-99)
[2017-04-10 06:50] LABS: PLATELET ESTIMATE ADQ (ADEQUATE)
[2017-04-12 07:02] LABS: BASOPHILS 0.2 %; BASOPHILS ABSOLUTE 0.01 10/3/uL (0.0-0.16); EOSINOPHILS 2.7 %; EOSINOPHILS ABSOLUTE 0.14 10/3/uL (0.0-0.53); HEMATOCRIT 32.5 % (36.0-48.0); HEMOGLOBIN 10.7 g/dL (12.0-16.0); IMMATURE GRANULOCYTES 0.2 %; IMMATURE GRANULOCYTES ABSOLUTE 0.01 10/3/uL (0.0-0.11); LYMPHOCYTES 35.9 %; LYMPHOCYTES ABSOLUTE 1.83 10/3/uL (0.67-4.30); MEAN CORPUS HGB CONC 32.9 g/dL (32.0-36.0); MEAN CORPUSCULAR HEMOGLOB 32.5 pg (26.0-34.0); MEAN CORPUSCULAR VOLUME 98.8 fL (80-100); MONOCYTES ABSOLUTE 0.51 10/3/uL (0.21-1.20); PLATELET COUNT 262 10/3/uL (150-400); RBC DISTRIBUTION WIDTH 20.5 % (12.0-16.0); RED CELL COUNT 3.29 10/6/uL (4.0-5.6); WHITE BLOOD CELLS 5.1 10/3/uL (4.5-10.5)
[2017-04-12 07:04] LABS: MANUAL DIFF NO %
[2017-04-12 07:18] LABS: A/G RATIO 0.7 (0.7-1.9); ALBUMIN 2.3 G/DL (3.5-5.0); ALKALINE PHOSPHATASE 114 U/L (45-117); BUN (BLOOD UREA NITROGEN) 9 MG/DL (6-23); CALCIUM, SERUM 8.1 MG/DL (8.5-10.4); CHLORIDE, SERUM 110 MMOL/L (96-112); CO2 (CARBON DIOXIDE) 28 MMOL/L (24-34); CREATININE 0.51 MG/DL (0.55-1.02); GFR AFRICAN AMERICAN 119 ML/MIN (>=60); GFR NON AFRICAN AMERICAN 102 ML/MIN (>=60); GLOBULIN 3.2 G/DL (2.5-4.1); GLUCOSE, SERUM 87 MG/DL (60-99); POTASSIUM, SERUM 3.8 MMOL/L (3.5-5.3); SGOT(AST) 77 U/L (5-40); SGPT(ALT) 52 U/L (5-65); SODIUM, SERUM 146 MMOL/L (135-148); TOTAL BILIRUBIN 0.4 MG/DL (0-1.2); TOTAL PROTEIN 5.5 G/DL (6.0-8.5)
[2017-04-13 07:03] LABS: BASOPHILS 0.3 %; BASOPHILS ABSOLUTE 0.02 10/3/uL (0.0-0.16); EOSINOPHILS 1.3 %; IMMATURE GRANULOCYTES 0.4 %; IMMATURE GRANULOCYTES ABSOLUTE 0.03 10/3/uL (0.0-0.11); LYMPHOCYTES 16.7 %; LYMPHOCYTES ABSOLUTE 1.33 10/3/uL (0.67-4.30); MEAN CORPUS HGB CONC 31.7 g/dL (32.0-36.0); MEAN CORPUSCULAR HEMOGLOB 32.1 pg (26.0-34.0); MEAN CORPUSCULAR VOLUME 101.1 fL (80-100); MEAN PLATELET VOLUME 10.1 fL (9.2-13.0); MONOCYTES 8.3 %; MONOCYTES ABSOLUTE 0.66 10/3/uL (0.21-1.20); NEUTROPHILS ABSOLUTE 5.81 10/3/uL (2.02-8.40); PLATELET COUNT 189 10/3/uL (150-400); RBC DISTRIBUTION WIDTH 20.1 % (12.0-16.0); RED CELL COUNT 3.74 10/6/uL (4.0-5.6)
[2017-04-13 07:04] LABS: HEMATOCRIT 37.8 % (36.0-48.0); MANUAL DIFF NO %
[2017-04-13 09:58] LABS: BUN (BLOOD UREA NITROGEN) 6 MG/DL (6-23); CHLORIDE, SERUM 108 MMOL/L (96-112); CO2 (CARBON DIOXIDE) 25 MMOL/L (24-34); CREATININE 0.41 MG/DL (0.55-1.02); GFR AFRICAN AMERICAN 127 ML/MIN (>=60); GFR NON AFRICAN AMERICAN 110 ML/MIN (>=60); GLUCOSE, SERUM 115 MG/DL (60-99); PHOSPHORUS, SERUM 3.5 MG/DL (2.5-4.5); POTASSIUM, SERUM 3.5 MMOL/L (3.5-5.3); SODIUM, SERUM 142 MMOL/L (135-148)
[2017-04-14 06:52] LABS: HEMOGLOBIN 10.7 g/dL (12.0-16.0); MEAN CORPUS HGB CONC 32.4 g/dL (32.0-36.0); MEAN CORPUSCULAR HEMOGLOB 32.5 pg (26.0-34.0); MEAN CORPUSCULAR VOLUME 100.3 fL (80-100); MEAN PLATELET VOLUME 10.3 fL (9.2-13.0); PLATELET COUNT 217 10/3/uL (150-400); RBC DISTRIBUTION WIDTH 19.7 % (12.0-16.0); RED CELL COUNT 3.29 10/6/uL (4.0-5.6); WHITE BLOOD CELLS 7.3 10/3/uL (4.5-10.5)
[2017-04-14 06:54] LABS: MANUAL DIFF YES %
[2017-04-14 07:04] LABS: BUN (BLOOD UREA NITROGEN) 9 MG/DL (6-23); CALCIUM, SERUM 7.6 MG/DL (8.5-10.4); CHLORIDE, SERUM 107 MMOL/L (96-112); CO2 (CARBON DIOXIDE) 26 MMOL/L (24-34); CREATININE 0.54 MG/DL (0.55-1.02); GFR AFRICAN AMERICAN 116 ML/MIN (>=60); GFR NON AFRICAN AMERICAN 100 ML/MIN (>=60); POTASSIUM, SERUM 3.3 MMOL/L (3.5-5.3); SODIUM, SERUM 141 MMOL/L (135-148)
[2017-04-14 07:05] LABS: GLUCOSE, SERUM 190 MG/DL (60-99); PHOSPHORUS, SERUM 2.2 MG/DL (2.5-4.5)
[2017-04-14 08:43] LABS: BAND NEUTROPHILS 15 %; EOSINOPHILS 1 %; EOSINOPHILS ABSOLUTE (CALC) 0.07 10/3/uL (0.0-0.53); LYMPHOCYTES 6 %; LYMPHOCYTES ABSOLUTE (CALC) 0.44 10/3/uL (0.67-4.30); MONOCYTES 14 %; MONOCYTES ABSOLUTE (CALC) 1.02 10/3/uL (0.21-1.20); NEUTROPHILS ABSOLUTE (CALC) 5.77 10/3/uL (2.02-8.40); SEGMENTED NEUTROPHIL (0) 64 %; TOTAL NUCLEATED CELLS 100
[2017-04-14 08:44] LABS: ANISOCYTOSIS 1+ (5-10/OIF) (0-5/OIF); MACROCYTES 1+ (5-10/OIF) (0-5/OIF); PLATELET ESTIMATE ADQ (ADEQUATE)
[2017-04-15 07:13] LABS: BASOPHILS 0.2 %; BASOPHILS ABSOLUTE 0.01 10/3/uL (0.0-0.16); EOSINOPHILS ABSOLUTE 0.13 10/3/uL (0.0-0.53); HEMATOCRIT 34.6 % (36.0-48.0); IMMATURE GRANULOCYTES 0.2 %; IMMATURE GRANULOCYTES ABSOLUTE 0.01 10/3/uL (0.0-0.11); LYMPHOCYTES ABSOLUTE 1.17 10/3/uL (0.67-4.30); MEAN CORPUS HGB CONC 31.8 g/dL (32.0-36.0); MEAN CORPUSCULAR VOLUME 100.6 fL (80-100); MEAN PLATELET VOLUME 10.5 fL (9.2-13.0); MONOCYTES 7.2 %; MONOCYTES ABSOLUTE 0.47 10/3/uL (0.21-1.20); NEUTROPHILS 72.4 %; PLATELET COUNT 185 10/3/uL (150-400); RBC DISTRIBUTION WIDTH 19.6 % (12.0-16.0); RED CELL COUNT 3.44 10/6/uL (4.0-5.6); WHITE BLOOD CELLS 6.5 10/3/uL (4.5-10.5)
[2017-04-15 07:15] LABS: MANUAL DIFF NO %
[2017-04-15 07:27] LABS: BUN (BLOOD UREA NITROGEN) 8 MG/DL (6-23); CALCIUM, SERUM 7.5 MG/DL (8.5-10.4); CHLORIDE, SERUM 111 MMOL/L (96-112); CO2 (CARBON DIOXIDE) 29 MMOL/L (24-34); CREATININE 0.43 MG/DL (0.55-1.02); GFR AFRICAN AMERICAN 125 ML/MIN (>=60); GFR NON AFRICAN AMERICAN 108 ML/MIN (>=60); PHOSPHORUS, SERUM 2.1 MG/DL (2.5-4.5); POTASSIUM, SERUM 3.6 MMOL/L (3.5-5.3); SODIUM, SERUM 144 MMOL/L (135-148)
[2017-04-15 07:28] LABS: GLUCOSE, SERUM 142 MG/DL (60-99)
[2017-04-16 04:25] LABS: BASOPHILS 0.2 %; BASOPHILS ABSOLUTE 0.01 10/3/uL (0.0-0.16); EOSINOPHILS 3.3 %; HEMOGLOBIN 9.9 g/dL (12.0-16.0); IMMATURE GRANULOCYTES 0.3 %; IMMATURE GRANULOCYTES ABSOLUTE 0.02 10/3/uL (0.0-0.11); LYMPHOCYTES 25.4 %; LYMPHOCYTES ABSOLUTE 1.52 10/3/uL (0.67-4.30); MEAN CORPUS HGB CONC 32.4 g/dL (32.0-36.0); MEAN CORPUSCULAR HEMOGLOB 32.5 pg (26.0-34.0); MEAN CORPUSCULAR VOLUME 100.3 fL (80-100); MEAN PLATELET VOLUME 10.7 fL (9.2-13.0); MONOCYTES 9.2 %; MONOCYTES ABSOLUTE 0.55 10/3/uL (0.21-1.20); NEUTROPHILS 61.6 %; NEUTROPHILS ABSOLUTE 3.68 10/3/uL (2.02-8.40); PLATELET COUNT 187 10/3/uL (150-400); RBC DISTRIBUTION WIDTH 19.3 % (12.0-16.0); RED CELL COUNT 3.05 10/6/uL (4.0-5.6)
[2017-04-16 04:26] LABS: HEMATOCRIT 30.6 % (36.0-48.0); MANUAL DIFF NO %
[2017-04-16 04:47] LABS: BUN (BLOOD UREA NITROGEN) 8 MG/DL (6-23); CALCIUM, SERUM 7.6 MG/DL (8.5-10.4); CHLORIDE, SERUM 110 MMOL/L (96-112); CO2 (CARBON DIOXIDE) 28 MMOL/L (24-34); CREATININE 0.48 MG/DL (0.55-1.02); GFR AFRICAN AMERICAN 121 ML/MIN (>=60); GFR NON AFRICAN AMERICAN 104 ML/MIN (>=60); GLUCOSE, SERUM 132 MG/DL (60-99); SODIUM, SERUM 143 MMOL/L (135-148)
[2017-04-17 07:07] LABS: BASOPHILS 0.4 %; BASOPHILS ABSOLUTE 0.02 10/3/uL (0.0-0.16); EOSINOPHILS ABSOLUTE 0.15 10/3/uL (0.0-0.53); HEMATOCRIT 27.9 % (36.0-48.0); HEMOGLOBIN 9.1 g/dL (12.0-16.0); IMMATURE GRANULOCYTES 0.2 %; IMMATURE GRANULOCYTES ABSOLUTE 0.01 10/3/uL (0.0-0.11); LYMPHOCYTES 29.1 %; LYMPHOCYTES ABSOLUTE 1.45 10/3/uL (0.67-4.30); MEAN CORPUS HGB CONC 32.6 g/dL (32.0-36.0); MEAN CORPUSCULAR HEMOGLOB 32.7 pg (26.0-34.0); MEAN CORPUSCULAR VOLUME 100.4 fL (80-100); MEAN PLATELET VOLUME 10.5 fL (9.2-13.0); MONOCYTES 8.8 %; MONOCYTES ABSOLUTE 0.44 10/3/uL (0.21-1.20); NEUTROPHILS 58.5 %; NEUTROPHILS ABSOLUTE 2.92 10/3/uL (2.02-8.40); PLATELET COUNT 177 10/3/uL (150-400); RBC DISTRIBUTION WIDTH 18.8 % (12.0-16.0); RED CELL COUNT 2.78 10/6/uL (4.0-5.6)
[2017-04-17 07:15] LABS: MANUAL DIFF NO %
[2017-04-17 07:29] LABS: BUN (BLOOD UREA NITROGEN) 11 MG/DL (6-23); CALCIUM, SERUM 7.5 MG/DL (8.5-10.4); CHLORIDE, SERUM 109 MMOL/L (96-112); CO2 (CARBON DIOXIDE) 28 MMOL/L (24-34); CREATININE 0.45 MG/DL (0.55-1.02); GFR AFRICAN AMERICAN 124 ML/MIN (>=60); GFR NON AFRICAN AMERICAN 107 ML/MIN (>=60); GLUCOSE, SERUM 148 MG/DL (60-99); POTASSIUM, SERUM 3.9 MMOL/L (3.5-5.3); SODIUM, SERUM 141 MMOL/L (135-148)
[2017-04-18 06:31] LABS: BASOPHILS 0.2 %; BASOPHILS ABSOLUTE 0.01 10/3/uL (0.0-0.16); EOSINOPHILS 3.1 %; EOSINOPHILS ABSOLUTE 0.15 10/3/uL (0.0-0.53); HEMOGLOBIN 9.9 g/dL (12.0-16.0); IMMATURE GRANULOCYTES 0.2 %; IMMATURE GRANULOCYTES ABSOLUTE 0.01 10/3/uL (0.0-0.11); LYMPHOCYTES 34.8 %; LYMPHOCYTES ABSOLUTE 1.69 10/3/uL (0.67-4.30); MONOCYTES 9.3 %; MONOCYTES ABSOLUTE 0.45 10/3/uL (0.21-1.20); NEUTROPHILS 52.4 %; NEUTROPHILS ABSOLUTE 2.54 10/3/uL (2.02-8.40); PLATELET COUNT 183 10/3/uL (150-400); RBC DISTRIBUTION WIDTH 18.8 % (12.0-16.0); WHITE BLOOD CELLS 4.9 10/3/uL (4.5-10.5)
[2017-04-18 06:33] LABS: MANUAL DIFF NO %
[2017-04-18 06:47] LABS: BUN (BLOOD UREA NITROGEN) 8 MG/DL (6-23); CALCIUM, SERUM 7.8 MG/DL (8.5-10.4); CHLORIDE, SERUM 111 MMOL/L (96-112); CO2 (CARBON DIOXIDE) 27 MMOL/L (24-34); CREATININE 0.48 MG/DL (0.55-1.02); GFR AFRICAN AMERICAN 121 ML/MIN (>=60); GFR NON AFRICAN AMERICAN 104 ML/MIN (>=60); GLUCOSE, SERUM 168 MG/DL (60-99); PHOSPHORUS, SERUM 2.6 MG/DL (2.5-4.5); POTASSIUM, SERUM 4.2 MMOL/L (3.5-5.3); SODIUM, SERUM 143 MMOL/L (135-148)
[2017-04-21] MEDS ORDERED: ASAB PO (19:23)
[2017-04-21] MEDS ORDERED: CO Q-10200 MG PO (19:24)
[2017-04-21] MEDS ORDERED: CAP50 PO (19:24)
[2017-04-21] MEDS ORDERED: LIPITOR10 PO (19:24)
[2017-04-21] MEDS ORDERED: CREON 24000 UNIT PO (19:25)
[2017-04-21] MEDS ORDERED: NEUR600 PO (19:25)
[2017-04-21] MEDS ORDERED: CYMBALTA60 PO (19:25)
[2017-04-21] MEDS ORDERED: SYNTHROID137 MCG PO (19:26)
[2017-04-21] MEDS ORDERED: LEVEMFLXPN SC (19:26)
[2017-04-21] MEDS ORDERED: LIDODERM TOP (19:27)
[2017-04-21] MEDS ORDERED: LOP25 PO (19:27)
[2017-04-21] MEDS ORDERED: REG PO (19:27)
[2017-04-21] MEDS ORDERED: FLAG500TAB PO (19:28)
[2017-04-21] MEDS ORDERED: NOVOPEN SC (19:29)
[2017-04-21] MEDS ORDERED: P5 PO (19:30)
[2017-04-21] MEDS ORDERED: OXYCON20 PO (19:30)
[2017-04-21] MEDS ORDERED: SPIRO25 PO (19:30)
[2017-04-21] MEDS ORDERED: VITE PO (19:30)
[2017-04-21] MEDS ORDERED: PRILOSEC40 MG PO (19:30)
[2017-04-21] MEDS ORDERED: CREON 12000 UNIT PO (19:31)
[2017-04-21] MEDS ORDERED: NORCO1 TA2 PO (19:31)
[2017-04-21] MEDS ORDERED: BISR PR (19:31)
[2017-04-21] MEDS ORDERED: MOMUD PO (19:32)
[2017-04-21] MEDS ORDERED: ZOFRAN4 PO (19:32)
[2017-04-21] MEDS ORDERED: PR12.5 PO (19:33)
[2017-05-17] MEDS ORDERED: CALTRA600D PO (19:21)
[2017-05-17] MEDS ORDERED: CO Q-10200 MG PO (19:21)
[2017-05-17] MEDS ORDERED: CAP50 PO (19:21)
[2017-05-17] MEDS ORDERED: LIPITOR10 PO (19:21)
[2017-05-17] MEDS ORDERED: ASAB PO (19:21)
[2017-05-17] MEDS ORDERED: CYMBALTA60 PO (19:22)
[2017-05-17] MEDS ORDERED: NEUR600 PO (19:22)
[2017-05-17] MEDS ORDERED: CREON DR 3,0001 EACH PO ×2 (19:22→19:26)
[2017-05-17] MEDS ORDERED: LEVEMIR SC (19:23)
[2017-05-17] MEDS ORDERED: LEVOTHYROXIN137 MCG PO (19:23)
[2017-05-17] MEDS ORDERED: LOP25 PO (19:23)
[2017-05-17] MEDS ORDERED: LIDODERM TOP (19:23)
[2017-05-17] MEDS ORDERED: NOVOLOG SC (19:24)
[2017-05-17] MEDS ORDERED: PRILOSEC40 MG PO (19:24)
[2017-05-17] MEDS ORDERED: REM15 PO (19:24)
[2017-05-17] MEDS ORDERED: MYCOSCROI TOP (19:24)
[2017-05-17] MEDS ORDERED: OXYCON20 PO (19:25)
[2017-05-17] MEDS ORDERED: SPIRO25 PO (19:25)
[2017-05-17] MEDS ORDERED: P5 PO (19:25)
[2017-05-17] MEDS ORDERED: REG PO (19:26)
[2017-05-17] MEDS ORDERED: NORCO1 TA2 PO (19:26)
[2017-05-17] MEDS ORDERED: VITE PO (19:26)
[2017-05-17] MEDS ORDERED: ZOFRAN4 PO (19:27)
[2017-05-17] MEDS ORDERED: TRAZ50 PO (19:27)
[2017-05-17] MEDS ORDERED: PR12.5 PO (19:27)
[2017-05-26] MEDS ORDERED: LEVOTHYROXIN137 MCG PO (16:35)
[2017-05-26] MEDS ORDERED: REM15 PO (16:35)
[2017-05-26] MEDS ORDERED: CYMBALTA60 PO (16:36)
[2017-05-26] MEDS ORDERED: CAPOTEN100 MG PO (16:36)
[2017-05-26] MEDS ORDERED: LIPITOR10 PO (16:36)
[2017-05-26] MEDS ORDERED: P5 PO (16:36)
[2017-05-26] MEDS ORDERED: ROXICODONE15 MG PO (16:37)
[2017-05-26] MEDS ORDERED: CO Q-10200 MG PO (16:37)
[2017-05-26] MEDS ORDERED: VITE PO (16:37)
[2017-05-26] MEDS ORDERED: OXYCONTIN15 MG PO (16:38)
[2017-05-26] MEDS ORDERED: NEUR300 PO (16:39)
[2017-05-26] MEDS ORDERED: I10 PO (16:39)
[2017-05-26] MEDS ORDERED: PROTONIX PO (16:39)
[2017-05-26] MEDS ORDERED: NORV5 PO (16:40)
[2017-05-26] MEDS ORDERED: CREON PO (16:40)
[2017-05-26] MEDS ORDERED: LANTUS SC (16:41)
[2017-05-26] MEDS ORDERED: DEMA20 PO (16:42)
[2017-05-28] MEDS ORDERED: LIPITOR10 PO (19:23)
[2017-05-28] MEDS ORDERED: CAP25 PO (19:23)
[2017-05-28] MEDS ORDERED: CYMBALTA60 PO (19:24)
[2017-05-28] MEDS ORDERED: CO Q-10200 MG PO (19:24)
[2017-05-28] MEDS ORDERED: CREON DR 3,0001 EACH PO (19:24)
[2017-05-28] MEDS ORDERED: SYNTHROID137 MCG PO (19:25)
[2017-05-28] MEDS ORDERED: LOP25 PO (19:25)
[2017-05-28] MEDS ORDERED: LANTUSCART SC (19:25)
[2017-05-28] MEDS ORDERED: NEUR300 PO (19:25)
[2017-05-28] MEDS ORDERED: NORCO1 TA2 PO (19:26)
[2017-05-28] MEDS ORDERED: MYCOSCROI TOP (19:26)
[2017-05-28] MEDS ORDERED: NOVOLOG SC (19:26)
[2017-05-28] MEDS ORDERED: PR12.5 PO (19:27)
[2017-05-28] MEDS ORDERED: PROTONIX PO (19:27)
[2017-05-28] MEDS ORDERED: P5 PO (19:27)
[2017-05-28] MEDS ORDERED: REM15 PO (19:28)
[2017-05-28] MEDS ORDERED: TRAZ50 PO (19:28)
[2017-05-28] MEDS ORDERED: VITE PO (19:28)
[2017-05-28] MEDS ORDERED: [UNRECOGNIZED DRUG - CODE] PO (19:29)
[2017-05-28] MEDS ORDERED: ZOFRAN4 PO (19:29)
[2017-05-28] MEDS ORDERED: OXYCON20 PO (20:00)
[2017-06-22] MEDS ORDERED: CREON PO (09:37)
[2017-06-22] MEDS ORDERED: OXYCODONE PO (09:41)
[2017-07-21] MEDS ORDERED: OXYCOD PO (09:54)
== END 2017-04-18 17:07 | DRG 74 ==
LOC: ER 23:37 → 5SO 04-09 01:46
PROVIDERS: Hospitalist; Internal Medicine; Nurse Practitioner
PROC: 30233N1 Transfusion of Nonautologous Red Blood Cells into Peripheral Vein, Percutaneous Approach (ICD-10-PCS; principal; 2017-04-09)
PROC: 0DHA3UZ Insertion of Feeding Device into Jejunum, Percutaneous Approach (ICD-10-PCS; 2017-04-09)
DX: E11.43 Type 2 diabetes mellitus with diabetic autonomic (poly)neuropathy (principal); I47.2 Ventricular tachycardia; E11.22 Type 2 diabetes mellitus with diabetic chronic kidney disease; M34.1 CR(E)ST syndrome; E44.1 Mild protein-calorie malnutrition; K75.81 Nonalcoholic steatohepatitis (NASH); K86.1 Other chronic pancreatitis; N39.0 Urinary tract infection, site not specified; Z93.1 Gastrostomy status; K31.84 Gastroparesis; D53.9 Nutritional anemia, unspecified; Z79.82 Long term (current) use of aspirin; Z79.899 Other long term (current) drug therapy; Z79.4 Long term (current) use of insulin; Z79.52 Long term (current) use of systemic steroids; I25.10 Atherosclerotic heart disease of native coronary artery without angina pectoris; N18.9 Chronic kidney disease, unspecified; Z88.5 Allergy status to narcotic agent; Z87.891 Personal history of nicotine dependence; Z98.890 Other specified postprocedural states; I12.9 Hypertensive chronic kidney disease with stage 1 through stage 4 chronic kidney disease, or unspecified chronic kidney disease; E03.9 Hypothyroidism, unspecified
CPT/HCPCS: 36415; 36593; 49441; 49465; 74176; 80048; 80053; 81001; 82248; 82607; 82746; 82947; 82962; 83605; 83690; 83735; 84100; 84134; 84145; 84443; 85025; 85610; 85730; 86850; 86900; 86901; 86920; 87040; 87077; 87086; 87186; 90714; 96374; 99285; A9270-GY; C1769; J0330; J0690; J1170; J2250; J2405; J2765; J2997; P9016; Q9967